=== PATIENT | male | born 1970 | race Caucasian/White ===

== ENCOUNTER 2020-10-10 09:58 | Outpatient (REF) | payer OTHER, SELFPAY ==
[2020-10-10 11:37] LABS: Hematocrit 44.4 % (42-52); Hemoglobin 15.6 g/dl (14.0-18.0); Mean Corpuscular HGB Conc 35.1 g/dl (31.0-36.0); Mean Corpuscular Hemoglobin 28.6 pg (27.0-33.0); Mean Corpuscular Volume 81.3 fL (80-98); Mean Platelet Volume 8.4 fL (9.4-12.4); Platelet Count 239 X10*3/uL (160-400); Red Blood Count 5.46 X10*6/uL (4.60-5.80); Red Cell Distribution Width 12.7 % (11.0-16.0); White Blood Count 6.9 X10*3/uL (4.8-10.8)
[2020-10-10 11:54] LABS: Alanine Aminotransferase 40 U/L (0-40); Albumin Level 4.3 g/dL (3.5-5.0); Alkaline Phosphatase 73 U/L (39-117); Anion Gap 12 (12-20); Aspartate Amino Transferase 22 U/L (5-37); Bilirubin Direct 0.2 mg/dL (0.0-0.5); Bilirubin Total 0.5 mg/dL (0.0-1.0); Blood Urea Nitrogen 13 mg/dL (9-16); Calcium 8.6 mg/dL (8.4-10.2); Carbon Dioxide 27 mmol/L (22-29); Chloride 102 mmol/L (96-108); Cholesterol 192 mg/dL; Estimated Glomerular Filt Rate > 60; Glucose Random 99 mg/dL (60-115); HDL Cholesterol 32 mg/dL; LDL Cholesterol Calculated 128 mg/dl; Potassium 4.1 mmol/l (3.3-5.1); Sodium 137 mmol/L (135-145); Total Protein 6.8 g/dL (6.5-8.0); Triglycerides 162 mg/dL
== END 2020-10-10 09:59 | disposition home or self-care (01) ==
LOC: HO.LAB 09:58
DX: E78.5 Hyperlipidemia, unspecified (principal); I10 Essential (primary) hypertension
CPT/HCPCS: 36415; 80053; 80061; 80076; 82248; 85027

== ENCOUNTER 2021-01-31 09:01 | Outpatient (REF) | payer OTHER, SELFPAY ==
[2021-01-31 09:20] LABS: MANUAL DIFF FLAG NO
[2021-01-31 09:24] LABS: Basophils Absolute Auto 0.2 X10*3/uL (0.0-0.2); Basophils Percent Auto 2.3 % (0-2); Eosinophils Absolute Auto 0.5 X10*3/uL (0.0-0.4); Eosinophils Percent Auto 6.5 % (0-4); Hematocrit 46.3 % (42-52); Hemoglobin 16.3 g/dl (14.0-18.0); Imm Gran Abs Auto 0.02 X10*3/uL (0.00-0.03); Imm Gran Pct Auto 0.2 % (0.0-0.4); Lymphocytes Absolute Auto 2.3 X10*3/uL (1.2-4.9); Lymphocytes Percent Auto 28.2 % (20-40); Mean Corpuscular HGB Conc 35.2 g/dl (31.0-36.0); Mean Corpuscular Hemoglobin 28.3 pg (27.0-33.0); Mean Corpuscular Volume 80.4 fL (80-98); Mean Platelet Volume 8.2 fL (9.4-12.4); Monocytes Absolute Auto 0.6 X10*3/uL (0.1-1.2); Monocytes Percent Auto 7.9 % (2-11); Neutrophils Absolute Auto 4.4 X10*3/uL (2.0-8.3); Neutrophils Percent Auto 54.9 % (45-73); Platelet Count 246 X10*3/uL (160-400); Red Blood Count 5.76 X10*6/uL (4.60-5.80); Red Cell Distribution Width 12.7 % (11.0-16.0); White Blood Count 8.1 X10*3/uL (4.8-10.8)
[2021-01-31 09:55] LABS: Alanine Aminotransferase 43 U/L (0-40); Albumin Level 4.3 g/dL (3.5-5.0); Alkaline Phosphatase 84 U/L (39-117); Anion Gap 12 (12-20); Aspartate Amino Transferase 23 U/L (5-37); Bilirubin Total 0.6 mg/dL (0.0-1.0); Blood Urea Nitrogen 11 mg/dL (9-16); Calcium 9.1 mg/dL (8.4-10.2); Carbon Dioxide 27 mmol/L (22-29); Chloride 104 mmol/L (96-108); Cholesterol 203 mg/dL; Estimated Glomerular Filt Rate > 60; Glucose Fasting 108 mg/dL (60-99); HDL Cholesterol 31 mg/dL; LDL Cholesterol Calculated 143 mg/dl; Potassium 4.3 mmol/L (3.3-5.1); Sodium 139 mmol/L (135-145); Triglycerides 149 mg/dL
== END 2021-01-31 09:02 | disposition home or self-care (01) ==
LOC: HO.LAB 09:01
PROVIDERS: PCP Internal Medicine; Visit Provider Internal Medicine
DX: Z00.00 Encounter for general adult medical examination without abnormal findings (principal); E11.9 Type 2 diabetes mellitus without complications
CPT/HCPCS: 36415; 80053; 80061; 85025

== ENCOUNTER 2023-03-01 10:35 | Outpatient (REF) | payer OTHER, SELFPAY ==
[2023-03-01 10:50] LABS: MANUAL DIFF FLAG NO
[2023-03-01 11:09] LABS: Basophils Absolute Auto 0.2 X10*3/uL (0.0-0.2); Basophils Percent Auto 2.4 % (0-2); Eosinophils Absolute Auto 0.5 X10*3/uL (0.0-0.4); Eosinophils Percent Auto 6.1 % (0-4); Hematocrit 45.4 % (42.0-52.0); Imm Gran Abs Auto 0.02 X10*3/uL (0.00-0.03); Imm Gran Pct Auto 0.3 % (0.0-0.4); Lymphocytes Absolute Auto 2.1 X10*3/uL (1.2-4.9); Lymphocytes Percent Auto 27.7 % (20-40); Mean Corpuscular HGB Conc 35.2 g/dl (31.0-36.0); Mean Corpuscular Hemoglobin 28.5 pg (27.0-33.0); Mean Corpuscular Volume 80.9 fL (80.0-98.0); Mean Platelet Volume 8.6 fL (9.4-12.4); Monocytes Absolute Auto 0.5 X10*3/uL (0.1-1.2); Monocytes Percent Auto 6.1 % (2-11); Neutrophils Absolute Auto 4.3 x10*3/uL (2.0-8.3); Neutrophils Percent Auto 57.4 % (45-73); Platelet Count 238 X10*3/uL (160-400); Red Blood Count 5.61 X10*6/uL (4.60-5.80); Red Cell Distribution Width 12.6 % (11.0-16.0); White Blood Count 7.5 X10*3/uL (4.8-10.8)
[2023-03-01 11:40] LABS: Alanine Aminotransferase 27 U/L (0-40); Albumin Level 4.2 g/dL (3.5-5.0); Alkaline Phosphatase 71 U/L (39-117); Anion Gap 15 (12-20); Aspartate Amino Transferase 18 U/L (5-37); Bilirubin Total 0.8 mg/dL (0.0-1.0); Blood Urea Nitrogen 12 mg/dL (9-16); Calcium 8.9 mg/dL (8.4-10.2); Carbon Dioxide 23 mmol/L (22-29); Chloride 105 mmol/L (96-108); Cholesterol 191 mg/dL; Estimated Glomerular Filt Rate > 60; Glucose Fasting 107 mg/dL (60-99); HDL Cholesterol 32 mg/dL; LDL Cholesterol Calculated 127 mg/dl; Sodium 139 mmol/L (135-145); Total Protein 6.7 g/dL (6.5-8.0); Triglycerides 162 mg/dL
[2023-03-01 11:49] LABS: HIV AB/AG Nonreactive (Nonreactive); HIV Num 1 0.07 S/CO (0.00-0.99); ~HepC Num1 0.15 S/CO (0.00-0.79); ~Hepatitis C Antibody Nonreactive (Nonreactive)
[2023-03-01 11:50] LABS: Syphilis Screen Nonreactive (Nonreactive)
[2023-03-01 11:57] LABS: Prostate Specific Antigen Scr 2.92 ng/mL (<0.05-4.0); Thyroid Stimulating Hormone 0.92 uIU/mL (0.32-4.0)
[2023-03-04 22:23] LABS: Herpes Simplex Type 1 IgG <0.90 index; Herpes Simplex Type 2 IgG <0.90 index
== END 2023-03-01 10:36 | disposition home or self-care (01) ==
LOC: HO.LAB 10:35
PROVIDERS: PCP Internal Medicine; Visit Provider Internal Medicine
DX: Z00.00 Encounter for general adult medical examination without abnormal findings (principal); E03.9 Hypothyroidism, unspecified; E78.5 Hyperlipidemia, unspecified; N28.9 Disorder of kidney and ureter, unspecified; D64.9 Anemia, unspecified; Z20.2 Contact with and (suspected) exposure to infections with a predominantly sexual mode of transmission; Z12.5 Encounter for screening for malignant neoplasm of prostate
CPT/HCPCS: 36415; 80053; 80061; 84153; 84443; 85025; 86695; 86696; 86780; 86803; 87389

== ENCOUNTER → 2023-04-12 14:21 | Outpatient (BNVA) | payer OTHER, SELFPAY | PROVIDERS: Visit Provider Nurse Practitioner Family ==

== ENCOUNTER 2024-06-12 08:17 | Outpatient (AMB) | payer OTHER, SELFPAY ==
--- NOTE | 2024-06-12 08:28 | A.OFFPC_ITS ---
Vital Signs 06/12/24 08:30 Height 5 ft 11 in Weight 207 lb 8 oz BMI 28.9 BP 120/70 Blood Pressure Location Lt brachial Position Sitting Pulse 101 H Pulse Source Pulse Oximeter Pulse Oximetry (%) 97 Oxygen Delivery Method Room Air Intake Visit Reasons: sleep disorder Intake Note: Patient is here to follow up on sleep disorder. Administration Clerk Required: No Hand I Blocker: Not Required per policy Accompanied by: Self / Same As Patient Allergies cephalexin [From KEFLEX] Allergy (Unknown, Verified 06/12/24 08:30) RASH clindamycin [CLINDAMYCIN] Allergy (Unknown, Verified 06/12/24 08:30) RASH levofloxacin [From LEVAQUIN] Allergy (Unknown, Verified 06/12/24 08:30) RASH clindamycin Allergy (Unknown, Uncoded 06/12/24 08:30) rash Medication List - Last Reconciled 06/15/24 by Noe Rodriguez MD albuterol sulfate 90 mcg/actuation (ProAir HFA) 1 puff inhalation QID PRN bupropion HCl SR 150 mg PO BID clonazepam 1 mg PO BID clotrimazole-betamethasone 1-0.05 % 1 appl topical BID 2 weeks diphenoxylate-atropine 2.5-0.025 mg (Lomotil) 1 tab PO QID PRN lisinopril 10 mg PO DAILY omeprazole 40 mg PO DAILY ropinirole 1 mg PO BEDTIME sulfamethoxazole-trimethoprim 800-160 mg (Bactrim DS) 1 tab PO BID Tobacco use date assessed: 06/12/24 Dental Screening Dental Screen Date: 06/12/24 Did you have a dental visit in the last 12 months?: Yes Did you have a dental problem in the last 6 months where you did not have access to dental care?: No Was dental information given to patient?: Patient has dentist HPI sleep disorder HPI Details has restless legs syndrome and rx is not helping [facility] Medical History History of bone cyst Hypertension Surgical History History of total replacement of left ankle History of hernia surgery Family History Mother Heart attack COPD (chronic obstructive pulmonary disease) Father Heart attack High blood pressure Social History Housing: House Alcohol intake: current Alcohol intake frequency: holidays/special occasions only Patient Tobacco Use Status: Never used Tobacco e-Cigarette/Vaping Use: Never Used Second Hand Smoke Exposure: No service: No Current occupational status: employed Cognitive needs: No Hearing needs: No Vision needs: No Questionnaire PHQ-9 Over the last 2 weeks, how often have you been bothered by any of the following problems? 1. Little interest or pleasure in doing things: not at all 2. Feeling down, depressed, or hopeless: not at all 3. Trouble falling or staying asleep, or sleeping too much: not at all 4. Feeling tired or having little energy: not at all 5. Poor appetite or overeating: not at all 6. Feeling bad about yourself - or that you are a failure or have let yourself or your family down: not at all 7. Trouble concentrating on things, such as reading the newspaper or watching television: not at all 8. Moving or speaking so slowly that other people could have noticed. Or the opposite - being so fidgety or restless that you have been moving around a lot more than usual: not at all 9. Thoughts that you would be better off or of hurting yourself in some way: not at all Total score: 0 Depression Screening Interpretation: Negative Depression Screening Done: Yes Source: Developed by Drs. Loyd Harper, Janice Lomeli, Twin Feldman and colleagues, with an educational jessica from [employer]. Thrive Questionnaire Date Thrive assessed: 06/12/24 I am a: Patient What is your living situation today?: I have a steady place to live Within the past 12 months, did the food you bought not last and you didn't have the money to get more?: Never true Within the past 12 months, did you worry whether your food would run out before you got money to buy more?: Never true Do you have trouble paying for medicines?: No Do you have trouble getting transportation to medical appointments?: No Do you have trouble paying your heating and electricity bill?: No Do you have trouble taking care of your child, family member or friend?: No Do you have trouble with day-to-day activities such as bathing, preparing meals, shopping, managing finances, etc.?: No Are you currently unemployed and looking for a job?: No Are you interested in more education?: No Currently or been in a relationship where the following occur: No concerns reported THRIVE Score: 0 AUDIT C Alcohol Use Questionnaire (AUDIT-C) 1. How often do you have a drink containing alcohol?: Monthly or less 2. How many drinks containing alcohol do you have on a typical day when you are drinking?: 1 or 2 Total Score: 1 RALPH-7 AMB Questionnaire RALPH-7 Date RALPH - 7 assessed: 06/12/24 Feeling nervous, anxious, or on edge: 0 = Not at all Not being able to stop or control worryin = Not at all Worrying too much about different things: 0 = Not at all Trouble relaxin = Not at all Being so restless that it is hard to sit still: 0 = Not at all Becoming easily annoyed or irritable: 0 = Not at all Feeling afraid as if something awful might happen: 0 = Not at all Total RALPH-7 score (0-4 normal; 5-9 mild; 10-14 moderate; 15-21 severe): 0 Source: Developed by Drs. Loyd Harper, Janice Lomeli, Twin Feldman and colleagues, with an educational jessica from [employer]. Review of Systems Const Denies chills, Denies headache(s) and Denies weight loss ENT Denies headache(s) Card Denies chest pain, Denies syncope, Denies irregular heart rhythm and Denies dyspnea Resp Denies chest congestion, Denies cough and Denies dyspnea GI Denies abdominal pain, Denies change in stool character, Denies nausea and Denies vomiting Musc Denies deformity and Denies joint swelling Neuro Denies syncope and Denies headache(s) Physical exam (Primary Care) Vital Signs: Last Vital Signs Pulse 101 H 06/12/24 08:30 BP 120/70 06/12/24 08:30 Pulse Ox 97 06/12/24 08:30 Oxygen Delivery Method Room Air 06/12/24 08:30 BMI result Body Mass Index 28.9 Tobacco/Smoking Status: Tobacco use Status Tobacco use date assessed 06/12/24 06/12/24 08:36 Patient Tobacco Use Status Never used Tobacco 06/12/24 08:36 e-Cigarette/Vaping Use Never Used 06/12/24 08:36 PHQ-9: PHQ-9 Score PHQ-9: Total score 0 06/12/24 08:36 Depression Screening Interpretation: Negative Thrive Assessment: Date of Thrive Assessment Date Thrive assessed 06/12/24 06/12/24 08:36 Currently or been in a relationship where the following occur: No concerns reported Const General: cooperative, comfortable, no acute distress and alert Neck Neck: Yes no lymphadenopathy Thyroid: Thyroid normal Resp Effort & Inspection: normal respiratory effort Auscultation: clear to auscultation bilaterally Percussion: percussion normal Cardio Jugular venous distension: no JVD Palpation: normal PMI Rate: regular rate Rhythm: regular rhythm Heart sounds: S1 normal heart sound present and S2 normal heart sound present GI Inspection: Yes normal to inspection Palpation (GI): No hepatosplenomegaly present Skin General skin exam: no rashes or lesions noted Extrem General: Yes no clubbing, cyanosis or edema Assessment and Plan Assessment & Plan (1) Restless legs syndrome: Code(s): G25.81 - Restless legs syndrome Plan: new rx sent Orders: Orders Lipid Panel 06/12/24 Z13.220 - Encounter for screening for lipoid disorders Thyroid Stimulating Hormone 06/12/24 Z13.29 - Encounter for screening for other suspected endocrine disorder Comprehensive [place]. Panel Fast 06/12/24 Z13.9 - Encounter for screening, unspecified Complete Blood Count Auto Diff 06/12/24 Z13.0 - Encounter for screening for diseases of the blood and blood-forming organs and certain disorders involving the immune mechanism Medications: New clotrimazole-betamethasone 1-0.05 % 1 appl topical BID 2 weeks 45 grams 0RF sulfamethoxazole-trimethoprim 800-160 mg (Bactrim DS) 1 tab PO BID 10 tabs 0RF cyclobenzaprine 5 mg PO BEDTIME PRN 30 tabs 3RF muscle spasm Coding Level of Care Code Est Pt Level 3 (23674) Diagnoses Restless legs syndrome G25.81
[2024-06-12 08:30] VITALS: BP 120/70; PULSE 101; O2SAT 97; BMI 28.9
== END 2024-06-12 09:47 | disposition home or self-care (01) ==
PROVIDERS: Visit Provider Internal Medicine
DX: G25.81 Restless legs syndrome (principal)
CPT/HCPCS: 99213

== ENCOUNTER 2024-06-12 08:58 | Outpatient (REF) | payer OTHER, SELFPAY ==
[2024-06-12 10:22] LABS: Basophils Absolute Auto 0.3 X10*3/uL (0.0-0.2); Basophils Percent Auto 3.6 % (0-2); Eosinophils Absolute Auto 0.5 X10*3/uL (0.0-0.4); Eosinophils Percent Auto 6.7 % (0-4); Hematocrit 45.1 % (42.0-52.0); Hemoglobin 15.8 g/dl (14.0-18.0); Imm Gran Abs Auto 0.02 X10*3/uL (0.00-0.03); Imm Gran Pct Auto 0.3 % (0.0-0.4); Lymphocytes Absolute Auto 1.8 X10*3/uL (1.2-4.9); Lymphocytes Percent Auto 24.7 % (20-40); MANUAL DIFF FLAG SCAN; Mean Corpuscular Hemoglobin 29.3 pg (27.0-33.0); Mean Corpuscular Volume 83.5 fL (80.0-98.0); Mean Platelet Volume 8.8 fL (9.4-12.4); Monocytes Absolute Auto 0.6 X10*3/uL (0.1-1.2); Monocytes Percent Auto 7.8 % (2-11); Neutrophils Absolute Auto 4.2 x10*3/uL (2.0-8.3); Neutrophils Percent Auto 56.9 % (45-73); Platelet Count 271 X10*3/uL (160-400); Red Cell Distribution Width 12.9 % (11.0-16.0); SCAN SMEAR FLAG 1; White Blood Count 7.4 X10*3/uL (4.8-10.8)
[2024-06-12 10:43] LABS: SLIDE REVIEW VERIFIED
[2024-06-12 13:23] LABS: Carbon Dioxide 26 mmol/L (22-29); Chloride 104 mmol/L (96-108); Potassium 4.1 mmol/L (3.3-5.1); Sodium 140 mmol/L (135-145)
[2024-06-12 13:24] LABS: Alanine Aminotransferase 20 U/L (0-40); Albumin Level 4.5 g/dL (3.5-5.0); Anion Gap 14 (12-20); Aspartate Amino Transferase 16 U/L (5-37); Bilirubin Total 0.4 mg/dL (0.0-1.0); Blood Urea Nitrogen 10 mg/dL (9-16); Calcium 9.4 mg/dL (8.4-10.2); Cholesterol 177 mg/dL (<200); Estimated Glomerular Filt Rate > 60; Glucose Fasting 93 mg/dL (60-99); HDL Cholesterol 36 mg/dL (>40); LDL Cholesterol Calculated 116 mg/dL (<100); Total Protein 7.5 g/dL (6.5-8.0); Triglycerides 127 mg/dL (<150)
[2024-06-12 13:25] LABS: Alkaline Phosphatase 81 U/L (39-117)
[2024-06-12 13:33] LABS: Thyroid Stimulating Hormone 1.85 uIU/mL (0.32-4.0)
== END 2024-06-12 08:59 | disposition home or self-care (01) ==
LOC: HO.LAB 08:58
PROVIDERS: PCP Internal Medicine; Visit Provider Internal Medicine
DX: Z13.29 Encounter for screening for other suspected endocrine disorder (principal); Z13.0 Encounter for screening for diseases of the blood and blood-forming organs and certain disorders involving the immune mechanism; Z13.220 Encounter for screening for lipoid disorders; Z13.9 Encounter for screening, unspecified
CPT/HCPCS: 36415; 80053; 80061; 84443; 85025

== ENCOUNTER 2024-06-17 10:44 | Outpatient (AMB) | payer OTHER, SELFPAY ==
--- NOTE | 2024-06-17 10:56 | A.OFFPC_ITS ---
Vital Signs 06/17/24 10:57 Height 5 ft 11 in Weight 209 lb BMI 29.1 BP 122/80 Blood Pressure Location Lt brachial Position Sitting Pulse 85 Pulse Source Pulse Oximeter Pulse Oximetry (%) 98 Oxygen Delivery Method Room Air Intake Visit Reasons: Alergic reaction Tire Mounter: Not Required per policy Accompanied by: Self / Same As Patient Allergies cephalexin [From KEFLEX] Allergy (Unknown, Verified 06/17/24 10:57) RASH clindamycin [CLINDAMYCIN] Allergy (Unknown, Verified 06/17/24 10:57) RASH levofloxacin [From LEVAQUIN] Allergy (Unknown, Verified 06/17/24 10:57) RASH clindamycin Allergy (Unknown, Uncoded 06/17/24 10:57) rash sulfa Adverse Reaction (Intermediate, Uncoded 06/17/24 11:07) Rash Medication List - Last Reconciled 06/17/24 by Noe Rodriguez MD albuterol sulfate 90 mcg/actuation (ProAir HFA) 1 puff inhalation QID PRN bupropion HCl SR 150 mg PO BID clonazepam 1 mg PO BID clotrimazole-betamethasone 1-0.05 % 1 appl topical BID 2 weeks cyclobenzaprine 5 mg PO BEDTIME PRN diphenoxylate-atropine 2.5-0.025 mg (Lomotil) 1 tab PO QID PRN lisinopril 10 mg PO DAILY omeprazole 40 mg PO DAILY ropinirole 1 mg PO BEDTIME Tobacco use date assessed: 06/12/24 Dental Screening Dental Screen Date: 06/12/24 HPI Alergic reaction HPI Details allergic to sulfonamides and has rash on legs PFSH Medical History History of bone cyst Hypertension Surgical History History of total replacement of left ankle History of hernia surgery Family History Mother Heart attack COPD (chronic obstructive pulmonary disease) Father Heart attack High blood pressure Social History Housing: House Alcohol intake: current Alcohol intake frequency: holidays/special occasions only Patient Tobacco Use Status: Never used Tobacco e-Cigarette/Vaping Use: Never Used Second Hand Smoke Exposure: No service: No Current occupational status: employed Cognitive needs: No Hearing needs: No Vision needs: No Questionnaire Thrive Questionnaire Date Thrive assessed: 06/12/24 RALPH-7 AMB Questionnaire RALPH-7 Date RALPH - 7 assessed: 06/12/24 Source: Developed by Drs. Loyd Harper, Janice Lomeli, Twin Feldman and colleagues, with an educational jessica from [employer]. Review of Systems Const Denies chills, Denies headache(s) and Denies weight loss ENT Denies headache(s) Card Denies chest pain, Denies syncope, Denies irregular heart rhythm and Denies dyspnea Resp Denies chest congestion, Denies cough and Denies dyspnea GI Denies abdominal pain, Denies change in stool character, Denies nausea and Denies vomiting Musc Denies deformity and Denies joint swelling Neuro Denies syncope and Denies headache(s) Physical exam (Primary Care) Vital Signs: Last Vital Signs Pulse 85 06/17/24 10:57 BP 122/80 06/17/24 10:57 Pulse Ox 98 06/17/24 10:57 Oxygen Delivery Method Room Air 06/17/24 10:57 BMI result Body Mass Index 29.1 Tobacco/Smoking Status: Tobacco use Status Tobacco use date assessed 06/12/24 06/17/24 10:57 Patient Tobacco Use Status Never used Tobacco 06/17/24 10:57 e-Cigarette/Vaping Use Never Used 06/17/24 10:57 Thrive Assessment: Date of Thrive Assessment Date Thrive assessed 06/12/24 06/17/24 10:57 Const General: cooperative, comfortable, no acute distress and alert Neck Neck: Yes no lymphadenopathy Thyroid: Thyroid normal Resp Effort & Inspection: normal respiratory effort Auscultation: clear to auscultation bilaterally Percussion: percussion normal Cardio Jugular venous distension: no JVD Palpation: normal PMI Rate: regular rate Rhythm: regular rhythm Heart sounds: S1 normal heart sound present and S2 normal heart sound present GI Inspection: Yes normal to inspection Palpation (GI): No hepatosplenomegaly present Skin Other: drug rash on legs Extrem General: Yes no clubbing, cyanosis or edema Assessment and Plan Assessment & Plan (1) Allergy to sulfonamides: Code(s): Z88.2 - Allergy status to sulfonamides Plan: rx sent Medications: New methylprednisolone (Medrol (Cristiano)) PO PER PKG DIR 21 ea 0RF Coding Level of Care Code Est Pt Level 3 (51882) Diagnoses Allergy to sulfonamides Z88.2
[2024-06-17 10:57] VITALS: BP 122/80; PULSE 85; O2SAT 98; BMI 29.1
== END 2024-06-17 11:10 | disposition home or self-care (01) ==
PROVIDERS: PCP Internal Medicine; Visit Provider Internal Medicine
DX: Z88.2 Allergy status to sulfonamides (principal)
CPT/HCPCS: 99213

== ENCOUNTER 2024-09-10 10:14 | Outpatient (AMB) | payer OTHER, SELFPAY ==
[2024-09-10 10:16] VITALS: BP 132/80; PULSE 96; O2SAT 94
--- NOTE | 2024-09-10 10:16 | MHC.PC.OV ---
Vital Signs 09/10/24 10:16 Height 5 ft 11 in Weight 215 lb BMI 30.0 BP 132/80 Blood Pressure Location Lt brachial Position Sitting Pulse 96 Pulse Source Pulse Oximeter Pulse Oximetry (%) 94 Oxygen Delivery Method Room Air Intake Visit Reasons: health concerns Insemination Worker Required: No Accompanied by: Self / Same As Patient Allergies cephalexin [From KEFLEX] Allergy (Unknown, Verified 09/10/24 10:17) RASH clindamycin [CLINDAMYCIN] Allergy (Unknown, Verified 09/10/24 10:17) RASH levofloxacin [From LEVAQUIN] Allergy (Unknown, Verified 09/10/24 10:17) RASH clindamycin Allergy (Unknown, Uncoded 09/10/24 10:17) rash sulfa Adverse Reaction (Intermediate, Uncoded 09/10/24 10:17) Rash Medication List - Last Reconciled 09/10/24 by Noe Rodriguez MD albuterol sulfate 90 mcg/actuation (ProAir HFA) 1 puff inhalation QID PRN bupropion HCl SR 150 mg PO BID clonazepam 1 mg PO BID cyclobenzaprine 5 mg PO BEDTIME PRN lisinopril 10 mg PO DAILY omeprazole 40 mg PO DAILY ropinirole 1 mg PO BEDTIME Tobacco use date assessed: 06/12/24 Dental Screening Dental Screen Date: 06/12/24 HPI health concerns HPI Details work stress; will need some time off and perhaps fmla; has psychology f/u [facility] Medical History History of bone cyst Hypertension Surgical History History of total replacement of left ankle History of hernia surgery Family History Mother Heart attack COPD (chronic obstructive pulmonary disease) Father Heart attack High blood pressure Social History Housing: House Alcohol intake: current Alcohol intake frequency: holidays/special occasions only Patient Tobacco Use Status: Never used Tobacco Tobacco use type: Cigarette e-Cigarette/Vaping Use: Never Used Second Hand Smoke Exposure: No service: No Current occupational status: employed Cognitive needs: No Hearing needs: No Vision needs: No Questionnaire PHQ-9 Over the last 2 weeks, how often have you been bothered by any of the following problems? 1. Little interest or pleasure in doing things: not at all 2. Feeling down, depressed, or hopeless: not at all 3. Trouble falling or staying asleep, or sleeping too much: not at all 4. Feeling tired or having little energy: not at all 5. Poor appetite or overeating: not at all 6. Feeling bad about yourself - or that you are a failure or have let yourself or your family down: not at all 7. Trouble concentrating on things, such as reading the newspaper or watching television: not at all 8. Moving or speaking so slowly that other people could have noticed. Or the opposite - being so fidgety or restless that you have been moving around a lot more than usual: not at all 9. Thoughts that you would be better off or of hurting yourself in some way: not at all Total score: 0 Depression Screening Interpretation: Negative Depression Screening Done: Yes Source: Developed by Drs. Loyd Harper, Janice Lomeli, Twin Feldman and colleagues, with an educational jessica from [employer]. Thrive Questionnaire Date Thrive assessed: 06/12/24 AUDIT C Alcohol Use Questionnaire (AUDIT-C) 1. How often do you have a drink containing alcohol?: Monthly or less 2. How many drinks containing alcohol do you have on a typical day when you are drinking?: 1 or 2 Total Score: 1 RALPH-7 AMB Questionnaire RALPH-7 Date RALPH - 7 assessed: 06/12/24 Source: Developed by Drs. Loyd Harper, Twin Melendez and colleagues, with an educational jessica from [employer]. Review of Systems Const Denies chills, Denies headache(s) and Denies weight loss ENT Denies headache(s) Card Denies chest pain, Denies syncope, Denies irregular heart rhythm and Denies dyspnea Resp Denies chest congestion, Denies cough and Denies dyspnea GI Denies abdominal pain, Denies change in stool character, Denies nausea and Denies vomiting Musc Denies deformity and Denies joint swelling Neuro Denies syncope and Denies headache(s) Physical exam (Primary Care) Vital Signs: Last Vital Signs Pulse 96 09/10/24 10:16 BP 132/80 09/10/24 10:16 Pulse Ox 94 09/10/24 10:16 Oxygen Delivery Method Room Air 09/10/24 10:16 BMI result Body Mass Index 30.0 Tobacco/Smoking Status: Tobacco use Status Tobacco use date assessed 06/12/24 09/10/24 10:22 Patient Tobacco Use Status Never used Tobacco 09/10/24 10:22 Tobacco use type Cigarette 09/10/24 10:22 e-Cigarette/Vaping Use Never Used 09/10/24 10:22 PHQ-9: PHQ-9 Score PHQ-9: Total score 0 09/10/24 10:22 Depression Screening Interpretation: Negative Thrive Assessment: Date of Thrive Assessment Date Thrive assessed 06/12/24 09/10/24 10:22 Const General: cooperative, comfortable, no acute distress and alert Neck Neck: Yes no lymphadenopathy Thyroid: Thyroid normal Resp Effort & Inspection: normal respiratory effort Auscultation: clear to auscultation bilaterally Percussion: percussion normal Cardio Jugular venous distension: no JVD Palpation: normal PMI Rate: regular rate Rhythm: regular rhythm Heart sounds: S1 normal heart sound present and S2 normal heart sound present GI Inspection: Yes normal to inspection Palpation (GI): No hepatosplenomegaly present Skin General skin exam: no rashes or lesions noted Extrem General: Yes no clubbing, cyanosis or edema Coding Level of Care Code Est Pt Level 3 (18081) Diagnoses Anxiety F41.9 Assessment & Plan Assessment & Plan (1) Anxiety: Code(s): F41.9 - Anxiety disorder, unspecified Category: Medical Plan: oow for a week
== END 2024-09-10 10:32 | disposition home or self-care (01) ==
PROVIDERS: PCP Internal Medicine; Visit Provider Internal Medicine
DX: F41.9 Anxiety disorder, unspecified (principal)

== ENCOUNTER → 2024-09-10 10:14 | Outpatient (BNVA) | payer OTHER, SELFPAY | PROVIDERS: PCP Internal Medicine; Visit Provider Internal Medicine ==

== ENCOUNTER 2024-09-16 10:06 | Outpatient (AMB) | payer OTHER, SELFPAY ==
--- NOTE | 2024-09-16 10:12 | A.OFFVIS_ITS ---
Vital Signs 09/16/24 10:16 Height 5 ft 11 in Weight 217 lb 6.012 oz BMI 30.3 BP 104/66 Blood Pressure Location Lt brachial Position Sitting Pulse 86 Pulse Source Pulse Oximeter Pulse Oximetry (%) 97 Oxygen Delivery Method Room Air Intake Visit Reasons: [place] [facility] Intake Note: Relevant Flags or Indicators ? Requires Clinical Product Manager? N. Pt previously seen by Jessi frazier for colo screening. Never had procedure. Tito presents in office today for a scheduled colo consult. CC; Since last visit; labs ordered ? done per pcp. Rx ordered ? no. Diagnostics/images ordered ? none. Relevant GI Sx as reported per pt? Reflux -- well controlled with their current medication. ? Dysphagia ? Fecal abnormalities o?? Diarrhea ? Bloating ? Abdominal distention ? Hx of any recent surgeries? None ? Pertinent FMHx? Mother - Chronic diarrhea, unspecified GI abnormalities. Maternal Grandmother - Heart disease. Allergies Sulfa (Sulfonamide Antibiotics) Allergy (Intermediate, Verified 09/16/24 10:24) Rash cephalexin [From KEFLEX] Allergy (Unknown, Verified 09/16/24 10:24) RASH clindamycin [CLINDAMYCIN] Allergy (Unknown, Verified 09/16/24 10:24) RASH levofloxacin [From LEVAQUIN] Allergy (Unknown, Verified 09/16/24 10:24) RASH HPI HPI [place]: Details: LAST VISIT: Screen for colon cancer Patient denies any cardiac or respiratory symptoms.? Long history loose stools when eating dairy. On omeprazole for acid reflux and states that he is doing well. Denies any issues with anesthesia in the past.? Patient was told that he stops breathing few times during anesthesia. Patient was told that by his as well.? No history infectious diseases in the past or present.? Not on any anticoagulation therapy.? No family or personal history of colon cancer or polyp s.? Patient denies melena, hematochezia, unintentional weight loss or ribbon like stools.? Discussed at length the pre-procedure,? prep, diet & medications as well as what to expect prior, during and after the procedure.?? Stressed the importance of good bowel prep. ?Recommended the use of Vaseline or Calmoseptine OTC & baby wipes with bowel movements to promote comfort.? ?Patient verbalizes understanding and agrees to plan of care.? He was given the opportunity to ask questions and all questions answered.? We will see him after the procedure.? TODAY'S VISIT Patient is here today for requested visit. Patient was unable to go for colonoscopy as he forgot after last appointment. Patient was visiting [place] over the summer and had viral illness with diarrhea lasting 3 days. Patient does have symptoms of occasional loose stools depending on what he eats. Patient reports that he is not able to tolerate dairy. He is aware that certain food will cause those symptoms. Patient denies melena, hematochezia, unintentional weight loss or ribbon like stools. Patient denies dyspepsia, dysphagia. This has any cardiac or respiratory symptoms. FORMERLY [facility], [facility]1983 Medical History Hypertension History of bone cyst Surgical History History of total replacement of left ankle History of hernia surgery Family History Mother Heart attack COPD (chronic obstructive pulmonary disease) Father Heart attack High blood pressure Social History Housing: House Alcohol intake: current Alcohol intake frequency: holidays/special occasions only Patient Tobacco Use Status: Never used Tobacco Tobacco use type: Cigarette e-Cigarette/Vaping Use: Never Used Second Hand Smoke Exposure: No service: No Current occupational status: employed Cognitive needs: No Hearing needs: No Vision needs: No Review of Systems Const Denies weight gain and Denies weight loss ENT Reports no additional complaints, Denies dysphagia and Denies odynophagia Card Reports no additional complaints Resp Reports no additional complaints GI Denies abdominal pain, Denies belching, Denies melena, Denies bloating, Denies change in bowel habits, Denies dysphagia, Denies excessive flatus, Denies dyspepsia, Denies heartburn, Denies diarrhea, Reports loose stools (occasional), Denies nausea, Denies odynophagia and Denies vomiting Reports no additional complaints Musc Reports no additional complaints Neuro Reports no additional complaints Psych Reports no additional complaints Endo Reports no additional complaints Physical Exam Vital Signs: BMI result Body Mass Index 30.3 Const General: healthy appearing and no acute distress Nutritional Appearance: obese Orientation/consciousness: patient oriented x3 Resp Effort & Inspection: normal respiratory effort, able to speak in complete sentences, no tracheal deviation and symmetric chest movement Auscultation: clear to auscultation bilaterally Cardio Rate: regular rate GI Inspection: Yes normal to inspection, No distended and Yes obesity Palpation (GI): Soft to palpation, not firm, nontender and No hepatosplenomegaly present Auscultation: normal bowel sounds General: Yes no CVA tenderness Back/Spine/Pelvis Back: no CVA tenderness Skin General skin exam: elasticity normal, turgor normal and dry skin Neuro General: patient oriented x3 Psych Appearance: grossly normal Mental Status: mental status grossly normal Assessment & Plan Assessment & Plan (1) Screen for colon cancer: Code(s): Z12.11 - Encounter for screening for malignant neoplasm of colon Plan Screen for colon cancer Patient denies any cardiac or respiratory symptoms.? Long history loose stools when eating dairy. On omeprazole for acid reflux and states that he is doing well. However does report on and off reflux if he forgets to take omeprazole. Will send him for upper endoscopy. Patient has been on omeprazole for many year s. Denies any issues with anesthesia in the past.? Patient was told that he stops breathing few times during anesthesia. Patient was told that by his as well.? No history infectious diseases in the past or present.? Not on any anticoagulation therapy.? No family or personal history of colon cancer or polyps.? Patient denies melena, hematochezia, unintentional weight loss or ribbon like stools.? Discussed at length the pre-procedure,? prep, diet & medications as well as what to expect prior, during and after the procedure.?? Stressed the importance of good bowel prep. ?Recommended the use of Vaseline or Calmoseptine OTC & baby wipes with bowel movements to promote comfort.? ?Patient verbalizes understanding and agrees to plan of care.? He was given the opportunity to ask questions and all questions answered.? We will see him after the procedure.? Medications: New bisacodyl (Dulcolax (bisacodyl)) take 4 tabs at noon the day before your colonoscopy 20 mg (4 x 5 mg) PO ONCE 1 day 4 tabs 0RF Z12.11 - Encounter for screening for malignant neoplasm of colon polyethylene glycol 3350 (Miralax) As directed by gastroenterology department at [facility] 238 grams PO ONCE 238 grams 0RF Z12.11 - Encounter for screening for malignant neoplasm of colon Coding Level of Care Code Est Pt Level 3 (75159) Diagnoses Screen for colon cancer Z12.11 Time Spent (min) 30 Comment 20 minutes spent with patient and additional 10 minutes spent reviewing his records
[2024-09-16 10:16] VITALS: BP 104/66; PULSE 86; O2SAT 97; BMI 30.3
== END 2024-09-16 11:07 | disposition home or self-care (01) ==
PROVIDERS: PCP Internal Medicine; Visit Provider Nurse Practitioner Family
DX: Z01.818 Encounter for other preprocedural examination (principal); Z12.11 Encounter for screening for malignant neoplasm of colon
CPT/HCPCS: 99212

== ENCOUNTER → 2024-09-16 10:06 | Outpatient (BNVA) | payer OTHER, SELFPAY | PROVIDERS: PCP Internal Medicine; Visit Provider Nurse Practitioner Family ==

== ENCOUNTER 2024-10-13 14:09 | Outpatient (REF) | payer OTHER, SELFPAY ==
--- NOTE | ~2024-10-13 | XR_ITS ---
EXAMINATION: XR CHEST CLINICAL INFORMATION: R07.9 - Chest pain, unspecified COMPARISON: 11/08/2017 TECHNIQUE: 2 views of the chest were obtained. FINDINGS: No significant abnormality is noted involving the heart, lungs, mediastinum, bony thorax or soft tissues. XR/XR chest 2V IMPRESSION: No acute disease Electronically signed by: Robert Douglass MD 10/13/2024 03:27 PM EST
== END 2024-10-13 14:10 | disposition home or self-care (01) ==
LOC: HO.XRAY 14:09
PROVIDERS: PCP Internal Medicine; Visit Provider Internal Medicine
DX: R07.9 Chest pain, unspecified (principal); J45.909 Unspecified asthma, uncomplicated
CPT/HCPCS: 71046; 96127

== ENCOUNTER 2024-10-13 14:09 | Outpatient (AMB) | payer OTHER, SELFPAY ==
[2024-10-13 14:10] VITALS: BP 130/78; PULSE 75; O2SAT 98
--- NOTE | 2024-10-13 14:10 | A.OFFPC_ITS ---
Vital Signs 10/13/24 14:10 Height 5 ft 11 in Weight 215 lb BMI 30.0 BP 130/78 Blood Pressure Location Lt brachial Position Sitting Pulse 75 Pulse Source Pulse Oximeter Pulse Oximetry (%) 98 Oxygen Delivery Method Room Air Intake Visit Reasons: Follow Up Allergies Sulfa (Sulfonamide Antibiotics) Allergy (Intermediate, Verified 10/13/24 14:11) Rash cephalexin [From KEFLEX] Allergy (Unknown, Verified 10/13/24 14:11) RASH clindamycin [CLINDAMYCIN] Allergy (Unknown, Verified 10/13/24 14:11) RASH levofloxacin [From LEVAQUIN] Allergy (Unknown, Verified 10/13/24 14:11) RASH Medication List - Last Reconciled 10/14/24 by Noe Rodriguez MD albuterol sulfate 90 mcg/actuation (ProAir HFA) 1 puff inhalation QID PRN bisacodyl (Dulcolax (bisacodyl)) 20 mg (4 x 5 mg) PO ONCE 1 day bupropion HCl SR 150 mg PO BID clonazepam 1 mg PO BID cyclobenzaprine 5 mg PO BEDTIME PRN lisinopril 10 mg PO DAILY magnesium oxide 500 mg PO DAILY omeprazole 40 mg PO DAILY polyethylene glycol 3350 (Miralax) 238 grams PO ONCE ropinirole 1 mg PO BEDTIME Tobacco use date assessed: 06/12/24 Dental Screening Dental Screen Date: 06/12/24 HPI Follow Up HPI Details asthma; stable on rx PFSH Medical History Hypertension History of bone cyst Surgical History History of total replacement of left ankle History of hernia surgery Family History Mother Heart attack COPD (chronic obstructive pulmonary disease) Father Heart attack High blood pressure Social History Housing: House Alcohol intake: current Alcohol intake frequency: holidays/special occasions only Patient Tobacco Use Status: Never used Tobacco Tobacco use type: Cigarette e-Cigarette/Vaping Use: Never Used Second Hand Smoke Exposure: No service: No Current occupational status: employed Cognitive needs: No Hearing needs: No Vision needs: No Questionnaire PHQ-9 Over the last 2 weeks, how often have you been bothered by any of the following problems? 1. Little interest or pleasure in doing things: not at all 2. Feeling down, depressed, or hopeless: not at all 3. Trouble falling or staying asleep, or sleeping too much: not at all 4. Feeling tired or having little energy: not at all 5. Poor appetite or overeating: not at all 6. Feeling bad about yourself - or that you are a failure or have let yourself or your family down: not at all 7. Trouble concentrating on things, such as reading the newspaper or watching television: not at all 8. Moving or speaking so slowly that other people could have noticed. Or the opposite - being so fidgety or restless that you have been moving around a lot more than usual: not at all 9. Thoughts that you would be better off or of hurting yourself in some way: not at all Total score: 0 Depression Screening Interpretation: Negative Depression Screening Done: Yes Source: Developed by Drs. Loyd Harper, Janice Lomeli, Twin Feldman and colleagues, with an educational jessica from [employer]. Thrive Questionnaire Date Thrive assessed: 06/12/24 AUDIT C Alcohol Use Questionnaire (AUDIT-C) 1. How often do you have a drink containing alcohol?: Monthly or less 2. How many drinks containing alcohol do you have on a typical day when you are drinking?: 1 or 2 Total Score: 1 RALPH-7 AMB Questionnaire RALPH-7 Date RALPH - 7 assessed: 06/12/24 Source: Developed by Drs. Loyd Harper, Twin Melendez and colleagues, with an educational jessica from [employer]. Review of Systems Const Denies chills, Denies headache(s) and Denies weight loss ENT Denies headache(s) Card Denies chest pain, Denies syncope, Denies irregular heart rhythm and Denies dyspnea Resp Denies chest congestion, Denies cough and Denies dyspnea GI Denies abdominal pain, Denies change in stool character, Denies nausea and Denies vomiting Musc Denies deformity and Denies joint swelling Neuro Denies syncope and Denies headache(s) Physical exam (Primary Care) Vital Signs: Last Vital Signs Pulse 75 10/13/24 14:10 BP 130/78 10/13/24 14:10 Pulse Ox 98 10/13/24 14:10 Oxygen Delivery Method Room Air 10/13/24 14:10 BMI result Body Mass Index 30.0 Tobacco/Smoking Status: Tobacco use Status Tobacco use date assessed 06/12/24 10/13/24 14:14 Patient Tobacco Use Status Never used Tobacco 10/13/24 14:14 Tobacco use type Cigarette 10/13/24 14:14 e-Cigarette/Vaping Use Never Used 10/13/24 14:14 PHQ-9: PHQ-9 Score PHQ-9: Total score 0 10/13/24 14:14 Depression Screening Interpretation: Negative Thrive Assessment: Date of Thrive Assessment Date Thrive assessed 06/12/24 10/13/24 14:14 Const General: cooperative, comfortable, no acute distress and alert Neck Neck: Yes no lymphadenopathy Thyroid: Thyroid normal Resp Effort & Inspection: normal respiratory effort Auscultation: clear to auscultation bilaterally Percussion: percussion normal Cardio Jugular venous distension: no JVD Palpation: normal PMI Rate: regular rate Rhythm: regular rhythm Heart sounds: S1 normal heart sound present and S2 normal heart sound present GI Inspection: Yes normal to inspection Palpation (GI): No hepatosplenomegaly present Skin General skin exam: no rashes or lesions noted Extrem General: Yes no clubbing, cyanosis or edema Coding Level of Care Code Est Pt Level 3 (91449) Diagnoses Asthma J45.909 Assessment & Plan Assessment & Plan (1) Asthma: Code(s): J45.909 - Unspecified asthma, uncomplicated Category: Medical Plan: stable; same rx Orders: Orders XR chest 2V 10/13/24 R07.9 - Chest pain, unspecified
== END 2024-10-13 14:25 | disposition home or self-care (01) ==
PROVIDERS: PCP Internal Medicine; Visit Provider Internal Medicine
DX: J45.909 Unspecified asthma, uncomplicated (principal)

== ENCOUNTER 2024-11-27 08:39 | Outpatient (AMB) | payer OTHER, SELFPAY ==
--- NOTE | 2024-11-27 08:43 | MHC.PC.OV ---
Vital Signs 11/27/24 08:44 Height 5 ft 11 in Weight 220 lb 2 oz BMI 30.7 BP 102/70 Blood Pressure Location Lt brachial Position Sitting Pulse 85 Pulse Source Pulse Oximeter Pulse Oximetry (%) 98 Oxygen Delivery Method Room Air Intake Visit Reasons: 6mth f/u Intake Note: Patient is here to follow up on HTN, Asthma and xray results. Pt decline flu shot today. 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 Accompanied by: Self / Same As Patient Allergies Sulfa (Sulfonamide Antibiotics) Allergy (Intermediate, Verified 11/27/24 08:44) Rash cephalexin [From KEFLEX] Allergy (Unknown, Verified 11/27/24 08:44) RASH clindamycin [CLINDAMYCIN] Allergy (Unknown, Verified 11/27/24 08:44) RASH levofloxacin [From LEVAQUIN] Allergy (Unknown, Verified 11/27/24 08:44) RASH Medication List - Last Reconciled 11/27/24 by Noe Rodriguez MD albuterol sulfate 90 mcg/actuation (ProAir HFA) 1 puff inhalation QID PRN bisacodyl (Dulcolax (bisacodyl)) 20 mg (4 x 5 mg) PO ONCE 1 day bupropion HCl SR 150 mg PO BID clonazepam 1 mg PO BID cyclobenzaprine 5 mg PO BEDTIME PRN lisinopril 10 mg PO DAILY magnesium oxide 500 mg PO DAILY omeprazole 40 mg PO DAILY polyethylene glycol 3350 (Miralax) 238 grams PO ONCE ropinirole 1 mg PO BEDTIME Tobacco use date assessed: 11/27/24 Dental Screening Dental Screen Date: 11/27/24 Did you have a dental visit in the last 12 months?: Yes Did you have a dental problem in the last 6 months where you did not have access to dental care?: No Was dental information given to patient?: Patient has dentist HPI 6mth f/u HPI Details HTN on Rx; doing well; compliant [facility] Medical History Hypertension History of bone cyst Surgical History History of total replacement of left ankle History of hernia surgery Family History Mother Heart attack COPD (chronic obstructive pulmonary disease) Father Heart attack High blood pressure Social History Housing: House Alcohol intake: current Alcohol intake frequency: holidays/special occasions only Patient Tobacco Use Status: Never used Tobacco Tobacco use type: Cigarette e-Cigarette/Vaping Use: Never Used Second Hand Smoke Exposure: No service: No Current occupational status: employed Cognitive needs: No Hearing needs: No Vision needs: No Questionnaire PHQ-9 Over the last 2 weeks, how often have you been bothered by any of the following problems? 1. Little interest or pleasure in doing things: not at all 2. Feeling down, depressed, or hopeless: several days (on medication) 3. Trouble falling or staying asleep, or sleeping too much: not at all 4. Feeling tired or having little energy: not at all 5. Poor appetite or overeating: not at all 6. Feeling bad about yourself - or that you are a failure or have let yourself or your family down: not at all 7. Trouble concentrating on things, such as reading the newspaper or watching television: not at all 8. Moving or speaking so slowly that other people could have noticed. Or the opposite - being so fidgety or restless that you have been moving around a lot more than usual: not at all 9. Thoughts that you would be better off or of hurting yourself in some way: not at all Total score: 1 Depression Screening Interpretation: Negative Depression Screening Done: Yes Source: Developed by Drs. Loyd Harper, Janice Lomeli, Twin Feldman and colleagues, with an educational jessica from [employer]. Thrive Questionnaire Date Thrive assessed: 11/27/24 I am a: Patient What is your living situation today?: I have a steady place to live Within the past 12 months, did the food you bought not last and you didn't have the money to get more?: Never true Within the past 12 months, did you worry whether your food would run out before you got money to buy more?: Never true Do you have trouble paying for medicines?: No Do you have trouble getting transportation to medical appointments?: No Do you have trouble paying your heating and electricity bill?: No Do you have trouble taking care of your child, family member or friend?: No Do you have trouble with day-to-day activities such as bathing, preparing meals, shopping, managing finances, etc.?: No Are you currently unemployed and looking for a job?: No Are you interested in more education?: No Currently or been in a relationship where the following occur: No concerns reported THRIVE Score: 0 AUDIT C Alcohol Use Questionnaire (AUDIT-C) 1. How often do you have a drink containing alcohol?: Never 2. How many drinks containing alcohol do you have on a typical day when you are drinking?: 1 or 2 3. How often do you have six or more drinks on one occasion?: Never Total Score: 0 RALPH-7 AMB Questionnaire RALPH-7 Date RALPH - 7 assessed: 11/27/24 Feeling nervous, anxious, or on edge: 1 = Several days (on medication) Not being able to stop or control worryin = Not at all Worrying too much about different things: 0 = Not at all Trouble relaxin = Not at all Being so restless that it is hard to sit still: 0 = Not at all Becoming easily annoyed or irritable: 0 = Not at all Feeling afraid as if something awful might happen: 0 = Not at all Total RALPH-7 score (0-4 normal; 5-9 mild; 10-14 moderate; 15-21 severe): 1 Source: Developed by Drs. Loyd Harper, Janice Loemli, Twin Feldman and colleagues, with an educational jessica from [employer]. Review of Systems Const Denies chills, Denies headache(s) and Denies weight loss ENT Denies headache(s) Card Denies chest pain, Denies syncope, Denies irregular heart rhythm and Denies dyspnea Resp Denies chest congestion, Denies cough and Denies dyspnea GI Denies abdominal pain, Denies change in stool character, Denies nausea and Denies vomiting Musc Denies deformity and Denies joint swelling Neuro Denies syncope and Denies headache(s) Physical exam (Primary Care) Vital Signs: Last Vital Signs Pulse 85 11/27/24 08:44 BP 102/70 11/27/24 08:44 Pulse Ox 98 11/27/24 08:44 Oxygen Delivery Method Room Air 11/27/24 08:44 BMI result Body Mass Index 30.7 Tobacco/Smoking Status: Tobacco use Status Tobacco use date assessed 11/27/24 11/27/24 08:47 Patient Tobacco Use Status Never used Tobacco 11/27/24 08:47 Tobacco use type Cigarette 11/27/24 08:47 e-Cigarette/Vaping Use Never Used 11/27/24 08:47 PHQ-9: PHQ-9 Score PHQ-9: Total score 1 11/27/24 08:50 Depression Screening Interpretation: Negative Thrive Assessment: Date of Thrive Assessment Date Thrive assessed 11/27/24 11/27/24 08:47 Currently or been in a relationship where the following occur: No concerns reported Const General: cooperative, comfortable, no acute distress and alert Neck Neck: Yes no lymphadenopathy Thyroid: Thyroid normal Resp Effort & Inspection: normal respiratory effort Auscultation: clear to auscultation bilaterally Percussion: percussion normal Cardio Jugular venous distension: no JVD Palpation: normal PMI Rate: regular rate Rhythm: regular rhythm Heart sounds: S1 normal heart sound present and S2 normal heart sound present GI Inspection: Yes normal to inspection Palpation (GI): No hepatosplenomegaly present Skin General skin exam: no rashes or lesions noted Extrem General: Yes no clubbing, cyanosis or edema Coding Level of Care Code Est Pt Level 3 (42628) Diagnoses Hypertension I10 Assessment & Plan Assessment & Plan (1) Hypertension: Code(s): I10 - Essential (primary) hypertension Category: Medical Plan: stable; same rx Medications: Refilled clonazepam 1 mg PO BID 60 tabs 5RF
[2024-11-27 08:44] VITALS: BP 102/70; PULSE 85; O2SAT 98; BMI 30.7
--- OUTSIDE RECORDS SUMMARY | 2024-11-27 08:51 | XMS_ITS | Data Portability ---
Author Organization [facility], [address] Address [address] [place] [address] Assessment No assessment recorded. Plan of Treatment Reminders Order Date Submit Date Provider Last Modified By Organization Details Last Modified Time Details Appointments None recorded. Lab rapid strep group A, throat 2021 [email or web address] 5 [address] [address] [place], [address], 12:36:53 rapid SARS CoV 2 Ag, QL IA, respiratory specimen 2021 [email or web address] 5 [address] [address] [place], [address], 12:36:54 rapid flu (A+B) 2021 [email or web address] 5 [address] [address] [place], [address], 12:36:54 Referral None recorded. Procedures None recorded. Surgeries None recorded. Imaging None recorded. Medication Orders doxycycline hyclate 100 mg capsule 2021 [id number], [address] [facility] [place], [address], 12:36:56 Patient TargetsNo targets recorded. Patient Instructions Encounter Date Encounter Id Patient Instructions Last Modified By Organization Details Last Modified Time 11/06/2022 [id number] viral infections : care instructions [email or web address] Not available 11/06/2022 12:36:53 diarrhea: care instructions [email or web address] Not available 11/06/2022 12:39:04 sore throat: car e instructions [email or web address] Not available 11/06/2022 12:36:53 Acute Sinusitis: Care Instructions Not available 11/06/2022 12:36:54 Take the antibiotic [...] primary care doctor as soon as possible. Not available 11/06/2022 12:39:03 Reason for Referral None Reported. Results Created Date Observation Date Name Description Value Unit Range Abnormal Flag Note LastModifiedBy Organization Detail LastModifiedTime 11/06/2011/06/2022 rapid flu (A+B) Unknown Analyte Normal = Negati ve Not Available [address] [place], [address], 11/06/2022 12:06:12 11/06/2011/06/2022 rapid flu (A+B) Unknown Analyte negati ve Not Available [address] [place], [address], 11/06/2022 12:06:12 11/06/2011/06/2022 rapid flu (A+B) Unknown Analyte Normal = Negati ve Not Available [address] [place], [address], 11/06/2022 12:06:12 11/06/2011/06/2022 rapid flu (A+B) Unknown Analyte negati ve Not Available [address] [place], [address], 11/06/2022 12:06:12 11/06/20 11/06/2022 rapid SARS CoV 2 Ag, QL IA, respi rator y speci men Unknown Analyte Normal =Negat robson Not Available [address] [place], [address], 11/06/2022 12:05:24 11/06/20 22 11/06/2022 rapid SARS CoV 2 Ag, QL IA, respi rator y speci men Unknown Analyte negati ve Not Available [address] [place], [address], 11/06/2022 12:05:24 11/06/20 22 11/06/2022 rapid strep group A, throa t Unknown Analyte Normal = Negati ve Not Available [address] [place], [address], 11/06/2022 12:00:22 11/06/20 22 11/06/2022 rapid strep group A, throa t Unknown Analyte negati ve Not Available [address] [place], [address], 11/06/2022 12:00:22 Result Notes None recorded. Problems Name Problem SNOMED Code Status Onset Date Resolution Date Notes Provider Name and Address Organization Details Recorded Time Hyperlipidemia 25588608 Active 2021 VIKI FAIRBANKS null, [place] - [facility] 12:03:50 Anxiety 57091740 Active 2021 VIKI FAIRBANKS null, [place] - [facility] 12:03:58 Gastroesophage al reflux disease 619319577 Active 2021 VIKI FAIRBANKS null, [place] - [facility] 12:04:07 Problem Notes None recorded. Medical Equipment None Reported. Allergies Allergen ID Allergen Name Allergen Category Reaction Reaction Severity Criticality Documentation Date Start Date Code Code System Note Provider Name and Address Organization Details Recorded Time 69113 Substance with sulfonami de structure and antibacte rial mechanism of action (substanc e) medicatio n Not available Not available Not available 11/06/2022 59311 8003 SNOMED VIKI palacios [place] - [facility] 12:02:00 Medications Name Sig Start Date [...] Last Updated DateTime 180.34 cm 29.3 kg/m2 71866.4 g 99 % 99 % 89 /min [...] history recorded. Immunizations Vaccine Type Date Status Note Provider Nam e and Address Organization Details Recorded Time COVID-19, [...] Diagnosis/Indication Diagnosis SNOMED-CT Code Diagnosis ICD10 Code [id number] [address] [facility], [place] [address] 01/27/2020 11:28:54 01/27/2020 12:31:58 [id number] [address] [facility], [place] [address] 01/26/2020 08:02:40 01/26/2020 08:34:40 [id number] [address] [facility], [place] [address] 06/22/2020 17:00:03 06/22/2020 18:08:57 [id number] [address] [facility], [place] [address] 06/24/2020 08:46:13 06/24/2020 09:53:35 [id number] [address] [facility], [place] [address] 07/09/2022 11:17:23 07/09/2022 13:13:41 [id number] Ebon[place] Yeh [place] [address] [facility], [place] [address] 11/06/2022 10:20:11 11/06/2022 13:27:19 Acute sinusitis 12148925 J01.90 Viral syndrome 209835736 B34.9 Health Concerns Section Related Observation LastModified by Organization Ngozi clements LastModified Time None Recorded Concern Status LastModified by Organization Details LastModified Time None Recorded Advance Directives Directive None Recorded Payers Encounter Date Sequence Insurance Name Policy Number Policy Son Covered Member ID Son Member ID Guarantor Name 01/27/2020 1 [facility] [employer] (POS) [id number] Tito Dafonseca [id number] Tito Dafonseca 06/22/2020 1 [facility] [employer] (POS) [id number] Tito Dafonseca [id number] Tito Dafonseca 06/24/2020 1 [facility] [employer] (POS) [id number] Tito Dafonseca [id number] Tito Dafonseca 07/09/2022 1 [facility] [employer] (POS) [id number] Tito Dafonseca [id number] Tito Dafonseca 11/06/2022 1 [facility] [employer] (POS) [id number] Tito Dafonseca [id number] Tito Dafonseca Notes Date Note Type Note [...] covid and flu. Eboni Yeh MD [address] [facility] [place], [address], [place] - [facility] 11/06/2022 12:52:16
== END 2024-11-27 08:58 | disposition home or self-care (01) ==
PROVIDERS: PCP Internal Medicine; Visit Provider Internal Medicine
DX: I10 Essential (primary) hypertension (principal)

== ENCOUNTER 2024-12-29 08:03 | Day surgery (SDC) | payer OTHER, SELFPAY ==
--- OUTSIDE RECORDS SUMMARY | 2024-11-03 23:28 | XMS_ITS | Data Portability ---
Author Organization [facility], [address] Address [address] [place] [address] Assessment No assessment recorded. Plan of Treatment Reminders Order Date Submit Date Provider Last Modified By Organization Details Last Modified Time Details Appointments None recorded. Lab rapid strep group A, throat 2021 [email or web address] 5 [address] [address], [address] [place], [address], 12:36:53 rapid SARS CoV 2 Ag, QL IA, respiratory specimen 2021 [email or web address] 5 [address] [address], [address] [place], [address], 12:36:54 rapid flu (A+B) 2021 [email or web address] 5 [address] [address], [address] [place], [address], 12:36:54 Referral None recorded. Procedures None recorded. Surgeries None recorded. Imaging None recorded. Medication Orders doxycycline hyclate [address] [facility][id number], [address] [facility] [place], [address], 12:36:56 Patient TargetsNo targets recorded. Patient Instructions Encounter Date Encounter Id Patient Instructions Last Modified By Organization Details Last Modified Time 11/06/2022 [id number] viral infections : care instructions [email or web address] Not available 11/06/2022 12:36:53 diarrhea: care instructions [email or web address] Not available 11/06/2022 12:39:04 sore throat: car e instructions [email or web address] Not available 11/06/2022 12:36:53 Acute Sinusitis: Care Instructions [email or web address] Not available 11/06/2022 12:36:54 Take the antibiotic as prescribed. Take an over the counter probiotic daily while taking the antibiotic. Rest. Drink plenty of fluids. Over the counter mucinex may be taken for congestion per package instructions. See printed instructions and work note. If your symptoms worsen you will need to go to the Emergency Department for further evaluation. Follow-up with your primary care doctor as soon as possible. [email or web address] Not available 11/06/2022 12:39:03 Reason for Referral None Reported. Results Created Date Observation Date Name Description Value Unit Range Abnormal Flag Note LastModifiedBy Organization Detail LastModifiedTime 11/06/2011/06/2022 rapid flu (A+B) Unknown Analyte Normal = Negati ve Not Available [address] [place], [address], 11/06/2022 12:06:12 11/06/2011/06/2022 rapid flu (A+B) Unknown Analyte negati ve Not Available [address] [place], [address], 11/06/2022 12:06:12 11/06/2011/06/2022 rapid flu (A+B) Unknown Analyte Normal = Negati ve Not Available [address] [place], [address], 11/06/2022 12:06:12 11/06/2011/06/2022 rapid flu (A+B) Unknown Analyte negati ve Not Available [address] [place], [address], 11/06/2022 12:06:12 11/06/20 11/06/2022 rapid SARS CoV 2 Ag, QL IA, respi rator y speci men Unknown Analyte Normal =Negat robson Not Available [address] [place], [address], 11/06/2022 12:05:24 11/06/20 22 11/06/2022 rapid SARS CoV 2 Ag, QL IA, respi rator y speci men Unknown Analyte negati ve Not Available [address] [place], [address], 11/06/2022 12:05:24 11/06/20 22 11/06/2022 rapid strep group A, throa t Unknown Analyte Normal = Negati ve Not Available [address] [place], [address], 11/06/2022 12:00:22 11/06/20 22 11/06/2022 rapid strep group A, throa t Unknown Analyte negati ve Not Available [address] [place], [address], 11/06/2022 12:00:22 Result Notes None recorded. Problems Name Problem SNOMED Code Status Onset Date Resolution Date Notes Provider Name and Address Organization Details Recorded Time Hyperlipidemia 57379016 Active 2021 VIKI FAIRBANKS null, [place] - [facility] 2 12:03:50 Anxiety 91792129 Active 2021 VIKI FAIRBANKS null, [place] - [facility] 12:03:58 Gastroesophage al reflux disease 850188586 Active 2021 VIKI FAIRBANKS null, [place] - [facility] 12:04:07 Problem Notes None recorded. Medical Equipment None Reported. Allergies Allergen ID Allergen Name Allergen Category Reaction Reaction Severity Criticality Documentation Date Start Date Code Code System Note Provider Name and Address Organization Details Recorded Time 75636 Substance with sulfonami de structure and antibacte rial mechanism of action (substanc e) medicatio n Not available Not available Not available 11/06/2022 46198 8003 SNOMED VIKI palacios [place] - [facility] 12:02:00 Medications Name Sig Start Date Stop Date Status Note LastModified by Organization Details LastModified Time doxycycline hyclate 100 mg capsule Take 1 capsule twice a day by oral route for 10 days. 022 active Not Available Not Available Not Avai lable Lipitor active Not Available Not Avail able Not Available omeprazole active Not Available Not Av ailable Not Available clonazepam active Not Available Not Av ailable Not Available bupropion HBr active Not Available Not Available Not Available Vitals Date Recorded Body height Body mass index (BMI) Body weight Oxygen saturation Oxygen saturation in Arterial blood by Pulse oximetry Heart rate Respiratory rate Body temperature Systolic blood pressure Diastolic blood pressure Provider Name and Address Organization Details Last Updated DateTime 180.34 cm 29.3 kg/m2 54494.4 g 99 % 99 % 89 /min 18 /min 98.4 [degF] 126 mm[Hg] 81 mm[Hg] VIKI FAIRBANKS [place] - [facility] 2 12:01:15 Social History Question Answer Notes LastModified by Organizat ion Details LastModified Time Tobacco Smoking Status Never Smoker VIKI palacios [place] - [facility] 11/06/2022 12:04:36 What Is Your Level Of Alcohol Consumption? None Information not available 11/06/2022 Do You Use Any Illicit Or Recreational Drugs? No Information not available 11/06/2022 Have You Recently Traveled Abroad? No Information not available 11/06/2022 Sex: Unknown Functional Status None recorded. Mental Status None recorded. Family History Relationship Description Onset Age of this Age Resolved Age Notes LastModified by Organization Details LastModified Time Father No current problems or disability Not available 11/06 12:04:11 Mother No current problems or disability Not available 11/06 12:04:11 Medical History No medical history recorded. Immunizations Vaccine Type Date Status Provider Name and Address Organization Details Recorded Time COVID-19, mRNA, LNP-S, PF, 30 mcg/0.3 mL dose 02/09/2021 completed VIKI FAIRBANKS null, [place] - [facility] 11/06/2022 12:01:44 Influenza, split virus, quadrivalent, PF 08/28/2020 completed VIKI FAIRBANKS null, [place] - [facility] 11/06/2022 12:01:44 COVID-19, mRNA, LNP-S, PF, 30 mcg/0.3 mL dose 03/02/2021 completed VIKI FAIRBANKS null, [place] - [facility] 11/06/2022 12:01:44 Past Encounters Encounter ID Performer Location Encounter Start Date Encounter Closed Date Diagnosis/Indication Diagnosis SNOMED-CT Code Diagnosis ICD10 Code [id number] [address] [facility] [address], [place] [address] 01/27/2020 11:28:54 01/27/2020 12:31:58 [id number] [address] [facility], [place] [address] 01/26/2020 08:02:40 01/26/2020 08:34:40 [id number] [address] [facility], [place] [address] 06/22/2020 17:00:03 06/22/2020 18:08:57 [id number] [address] [facility], [place] [address] 06/24/2020 08:46:13 06/24/2020 09:53:35 [id number] [address] [facility], [place] [address] 07/09/2022 11:17:23 07/09/2022 13:13:41 [id number] [place] Y[place] [address] [facility], [place] [address] 11/06/2022 10:20:11 11/06/2022 13:27:19 Acute sinusitis 39257364 J01.90 Viral syndrome 017801748 B34.9 Health Concerns Section Related Observation LastModified by Organization Ngozi clements LastModified Time None Recorded Concern Status LastModified by Organization Details LastModified Time None Recorded Advance Directives Directive None Recorded Payers Encounter Date Sequence Insurance Name Policy Number Policy Son Covered Member ID Son Member ID Guarantor Name 01/27/2020 1 [employer] [facility] [facility] HE[employer] (POS) [id number] Tito Mahmoodonseca [id number] Tito Dafonseca 06/22/2020 1 [employer] [facility] [facility] [employer] HEALTH PL[employer] (POS) [id number] Tito Dafonseca [id number] Tito Dafonseca 06/24/2020 1 [employer] [facility] [facility] [employer] HE[employer] (POS) [id number] Tito Dafonseca [id number] Tito Dafonseca 07/09/2022 1 [employer] HE[employer] (POS) [id number] Tito Dafonseca [id number] Tito Dafonseca 11/06/2022 1 [facility] PLAN (POS) [id number] Tito Dafonseca [id number] Tito Dafonseca Notes Date Note Type Note Provider Name and Address Organization Details Recorded Time 2 text/html CoughReported bypatient.source of patient informationInformation obtained from patient; Patient arrived at Urgent Care ambulatory Quality:productive cough Severity:moderate Duration:constant; 7 days Timing:gradual Context:family members ill with similar symptoms Associated Symptoms:no chest pain; no edema; no wheezing;fever;chills;nause a;vomiting;post nasal dripNotes:52 year old male presenting for evaluation of an illness that began about one week ago. He reports fever, chills, body aches, nasal congestion, post nasal drip, bilateral frontal and maxillary sinus pain and pressure, sore throat, productive cough, sporadic nausea, vomiting and diarrhea. No rash or stiff neck. He has fatigue. No chest pain. No abdominal pain, eye symptoms or ear pain. He has a frontal headache. A family member has had similar symptoms and tested negative for covid and flu. Eboni Yeh MD [address] [facility] [place], [address], [place] - [facility] 11/06/2022 12:52:16
[2024-12-25 15:01] VITALS: BMI 30.7
--- NOTE | 2024-12-28 13:33 | HO.ANESPROP2 ---
Documented by User: Thea Michaud NP 12/28/24 13:34 HPI - Anesthesia Eval Consult details Narrative: 54yo M for Upper Endoscopy and Colonoscopy [facility] Active Problems Active Problems: All Active Problems Anxiety (Acute) Allergy to sulfonamides (Acute) Restless legs syndrome (Acute) Depression (Acute) Asthma (Acute) Physical exam (Acute) Cough (Acute) Diarrhea (Acute) Dupuytren contracture (Acute) Cerumen debris on tympanic membrane (Acute) Hypertension (Acute) Past Medical History Medical History Apnea Dupuytren's contracture Asthma Depression RLS (restless legs syndrome) Anxiety Hypertension History of bone cyst Family History Family History Mother Heart attack COPD (chronic obstructive pulmonary disease) Father Heart attack High blood pressure Surgical History Surgical History H/O toe surgery History of total replacement of left ankle History of hernia surgery Social History Social History Housing: House Alcohol intake: current Alcohol intake frequency: holidays/special occasions only Patient Tobacco Use Status: Never used Tobacco Tobacco use type: Cigarette e-Cigarette/Vaping Use: Never Used Second Hand Smoke Exposure: No Use of substances other than those prescribed or required for medical reasons: No Advance Directives: No Advance Directives Information Provided: Yes service: No Current occupational status: employed Cognitive needs: No Hearing needs: No Vision needs: No Meds Allergies Allergy/AdvReac Type Severity Reaction Status Date / Time Sulfa (Sulfonamide Allergy Intermediate Rash Verified 11/27/24 08:44 Antibiotics) cephalexin [From KEFLEX] Allergy Unknown RASH Verified 11/27/24 08:44 clindamycin [CLINDAMYCIN] Allergy Unknown RASH Verified 11/27/24 08:44 levofloxacin [From LEVAQUIN] Allergy Unknown RASH Verified 11/27/24 08:44 Home Medications ?Medication ?Instructions ?Recorded ?Confirmed ?Last Taken ?Type magnesium oxide 500 mg capsule 500 mg PO DAILY 09/16/24 12/25/24 Unknown History Exam Height,Weight and Vital Signs: Height 5 ft 11 in Weight 99.79 kg Assessment and Plan Assessment Anesthesia Assessment: Chart Reviewed Documented by User: Nadya Hollis MD 12/29/24 10:26 PMFSH Active Problems Active Problems: All Active Problems Anxiety (Acute) Allergy to sulfonamides (Acute) Restless legs syndrome (Acute) Depression (Acute) Asthma (Acute) Physical exam (Acute) Cough (Acute) Diarrhea (Acute) Dupuytren contracture (Acute) Cerumen debris on tympanic membrane (Acute) Hypertension (Acute) SUSAN. Prescribed ropinirole Past Medical History Medical History Apnea Dupuytren's contracture Asthma Depression RLS (restless legs syndrome) Anxiety Hypertension History of bone cyst Family History Family History Mother Heart attack COPD (chronic obstructive pulmonary disease) Father Heart attack High blood pressure Family history of problems with anesthesia: No Surgical History Surgical History H/O toe surgery History of total replacement of left ankle History of hernia surgery History of Problems with Anesthesia: No Social History Social History Housing: House Alcohol intake: current Alcohol intake frequency: holidays/special occasions only Patient Tobacco Use Status: Never used Tobacco Tobacco use type: Cigarette e-Cigarette/Vaping Use: Never Used Second Hand Smoke Exposure: No Use of substances other than those prescribed or required for medical reasons: No Advance Directives: No Advance Directives Information Provided: Yes service: No Current occupational status: employed Cognitive needs: No Hearing needs: No Vision needs: No Meds Allergies Allergy/AdvReac Type Severity Reaction Status Date / Time Sulfa (Sulfonamide Allergy Intermediate Rash Verified 11/27/24 08:44 Antibiotics) cephalexin [From KEFLEX] Allergy Unknown RASH Verified 11/27/24 08:44 clindamycin [CLINDAMYCIN] Allergy Unknown RASH Verified 11/27/24 08:44 levofloxacin [From LEVAQUIN] Allergy Unknown RASH Verified 11/27/24 08:44 Home Medications ?Medication ?Instructions ?Recorded ?Confirmed ?Last Taken ?Type magnesium oxide 500 mg capsule 500 mg PO DAILY 09/16/24 12/25/24 Unknown History Exam Height,Weight and Vital Signs: Height 5 ft 11 in Weight 99.79 kg Vital Signs Temp Pulse Resp BP Pulse Ox O2 Del Method 12/29/24 09:08 98.2 F 76 16 118/75 98 Room Air Airway Mallampati Class: III TM Dist: >3cm Neck ROM: Full Loose/Missing/Broken Teeth: Yes (Missing tooth top Right. Denies broken or loose teeth) Heart: RRR Lungs: CTAB Assessment and Plan Assessment Anesthesia Assessment: Anesthesia Plan Discussed and Chart Reviewed Final Anesthetic Review Family History of Problems with Anesthesia: No History of Problems with Anesthesia: No NPO: Yes ASA Class: III Final Preanesthetic Review: No Changes in Pt Med Stat, Meds/Allgs Chart Reviewed, Consent Obtained/Reviewed and Anes Risks/Benef Reviewed Patient Risk: Intermediate Procedure Risk: Low Assessment/Block/Sedation in SS: Assess/Block/Sedation-SS Anesthetic Plan Anesthetic Plan: TIVA Disposition: Standard PACU
--- OUTSIDE RECORDS SUMMARY | 2024-12-29 08:07 | XMS_ITS | Data Portability ---
Author Organization [facility], [address] Address [address] [place] [address] Assessment No assessment recorded. Plan of Treatment Reminders Order Date Submit Date Provider Last Modified By Organization Details Last Modified Time Details Appointments None recorded. Lab rapid strep group A, throat 2021 [email or web address] 5 [address] [address], [address] [place], [address], 12:36:53 rapid SARS CoV 2 Ag, QL IA, respiratory specimen 2021 [email or web address] 5 [address] [address], [address] [place], [address], 12:36:54 rapid flu (A+B) 2021 [email or web address] 5 [address] [address], [address] [place], [address], 12:36:54 Referral None recorded. Procedures None recorded. Surgeries None recorded. Imaging None recorded. Medication Orders doxycycline hyclate 100 mg capsule 2021 [facility][id number], [address] [facility] [place], [address], 12:36:56 Patient TargetsNo targets recorded. Patient Instructions Encounter Date Encounter Id Patient Instructions Last Modified By Organization Details Last Modified Time 11/06/2022 [id number] viral infections : care instructions [email or web address] Not available 11/06/2022 12:36:53 diarrhea: care instructions [email or web address] Not available 11/06/2022 12:39:04 sore throat: car e instructions [email or web address] Not available 11/06/2022 12:36:53 Acute Sinusitis: Care Instructions [email or web address] Not available 11/06/2022 12:36:54 Take the antibiotic [...] primary care doctor as soon as possible. [email or web address] Not available 11/06/2022 12:39:03 Reason for Referral None Reported. Results Created Date Observation Date Name Description Value Unit Range Abnormal Flag Note LastModifiedBy Organization Detail LastModifiedTime 11/06/2011/06/2022 rapid flu (A+B) Unknown Analyte Normal = Negati ve Not Available [address] [place], [address], 11/06/2022 12:06:12 11/06/2011/06/2022 rapid flu (A+B) Unknown Analyte negati ve Not Available [address] [place], [address], 11/06/2022 12:06:12 11/06/2011/06/2022 rapid flu (A+B) Unknown Analyte Normal = Negati ve Not Available [address] [place], [address], 11/06/2022 12:06:12 11/06/2011/06/2022 rapid flu (A+B) Unknown Analyte negati ve Not Available [address] [place], [address], 11/06/2022 12:06:12 11/06/20 11/06/2022 rapid SARS CoV 2 Ag, QL IA, respi rator y speci men Unknown Analyte Normal =Negat robson Not Available [address] [place], [address], 11/06/2022 12:05:24 11/06/20 22 11/06/2022 rapid SARS CoV 2 Ag, QL IA, respi rator y speci men Unknown Analyte negati ve Not Available [address] [place], [address], 11/06/2022 12:05:24 11/06/20 22 11/06/2022 rapid strep group A, throa t Unknown Analyte Normal = Negati ve Not Available [address] [place], [address], 11/06/2022 12:00:22 11/06/20 22 11/06/2022 rapid strep group A, throa t Unknown Analyte negati ve Not Available [address] [place], [address], 11/06/2022 12:00:22 Result Notes None recorded. Problems Name Problem SNOMED Code Status Onset Date Resolution Date Notes Provider Name and Address Organization Details Recorded Time Hyperlipidemia 34985952 Active 2021 VIKI FAIRBANKS null, [place] - [facility] 2 12:03:50 Anxiety 40340520 Active 2021 VIKI FAIRBANKS null, PA - [facility] 12:03:58 Gastroesophage al reflux disease 327132043 Active 2021 VIKI FAIRBANKS null, [place] - [facility] 12:04:07 Problem Notes None recorded. Medical Equipment None Reported. Allergies Allergen ID Allergen Name Allergen Category Reaction Reaction Severity Criticality Documentation Date Start Date Code Code System Note Provider Name and Address Organization Details Recorded Time 75231 Substance with sulfonami de structure and antibacte rial mechanism of action (substanc e) medicatio n Not available Not available Not available 11/06/2022 50638 8003 SNOMED VIKI palacios [place] - [facility] 12:02:00 Medications Name Sig Start Date Stop [...] saturation in Arterial blood by Pulse oximetry Pain severity - 0-10 verbal numeric rating [Score] - Reported Heart rate Respiratory rate Body temperature Systolic blood pressure Diastolic blood pressure Provider Name and Address Organization Details Last Updated DateTime 180.34 cm 29.3 kg/m2 63457.4 g 99 % 99 % 7 89 /min 18 /min 98.4 [degF] 126 mm[Hg] 81 mm[Hg] VIKI FAIRBANKS PA - [facility] 12:01:15 Social History Question Answer Notes LastModified [...] Diagnosis/Indication Diagnosis SNOMED-CT Code Diagnosis ICD10 Code Diagnosis Note [id number] [address] [facility], [place] [address] 01/27/2020 11:28:54 01/27/2020 12:31:58 [id number] [address] [facility], [place] [address] 01/26/2020 08:02:40 01/26/2020 08:34:40 [id number] [address] [facility] ld, [place] [address] 06/22/2020 17:00:03 06/22/2020 18:08:57 [id number] [address] [facility], [place] [address] 06/24/2020 08:46:13 06/24/2020 09:53:35 [id number] [address] [facility] [address], [place] [address] 07/09/2022 11:17:23 07/09/2022 13:13:41 [id number] Eboni Yeh [place] [address] [facility] [address], [place] [address] 11/06/2022 10:20:11 11/06/2022 13:27:19 Acute sinusitis 37995959 J01.90 Viral syndrome [id number] B34.9 Health Concerns Section Related Observation LastModified by Organization Detai ls LastModified Time None Recorded Concern Status LastModified by Organization Details LastModified Time None Recorded Advance Directives Directive None Recorded Payers Encounter Date Sequence Insurance Name Policy Number Policy Son Covered Member ID Son Member ID Guarantor Name 01/27/2020 1 [facility] [employer] (POS) [id number] Tito Dafonseca [id number] Tito Dafonseca 06/22/2020 1 [facility] [employer] (POS) [id number] Tito Dafonseca [id number] Tito Dafonseca 06/24/2020 1 [facility] [employer] (POS) [id number] Tito Dafonseca [id number] Tito Dafonseca 07/09/2022 1 [facility] [employer] (POS) [id number] Tito Dafonseca [id number] Tito Dafonseca 11/06/2022 1 [facility] [employer] (POS) [id number] Tito Dafonseca [id number] Tito Dafonseca Notes Date Note Type Note [...] for covid and flu. Eboni Yeh MD [address] [place] [address] [facility] [place], [address], [place] - [facility] 11/06/2022 12:52:16
[2024-12-29 09:08] VITALS: BP 118/75; PULSE 76; RESP 16; TEMP 36.8; O2SAT 98
[2024-12-29] MEDS: Lactated Ringers 1,000 ML 100 ML IVCONT (09:16)
--- NOTE | 2024-12-29 09:27 | MHC.SHP ---
Pre-Procedural Eval Section A - 24 Hr Update-Section A only Date of Service: 12/29/24 Section B - Complete if H&P > 30 days Chief Complaint: gerd,screening,diARRHEA Relevant Family History (Specify if Yes): No Relevant Social History: None Present Medications: see Short Stay Collaborative assessment Medical History: Significant History (Hypertension History of bone cyst) History of Previous Operations: Relevant previous surgery/procedure and date(s) (History of total replacement of left ankle History of hernia surgery) Allergies: Allergies Allergy/AdvReac Type Severity Reaction Status Date / Time Sulfa (Sulfonamide Allergy Intermediate Rash Verified 11/27/24 08:44 Antibiotics) cephalexin [From KEFLEX] Allergy Unknown RASH Verified 11/27/24 08:44 clindamycin [CLINDAMYCIN] Allergy Unknown RASH Verified 11/27/24 08:44 levofloxacin [From LEVAQUIN] Allergy Unknown RASH Verified 11/27/24 08:44 Review of Systems Sugical H&P ROS: Negative: Constitution, Cardiovascular, Respiratory, Neurological, Psychiatric, Hem-Onc, Allergic/Immunologic, Gastrointestinal, Genitourinary, Musculoskeletal, Integumentary, Endocrine and Eyes/Ears/Nose/Throat Exam Surgical H&P Exam: Normal: HEENT, Normal: Heart, Normal: Lungs, Normal: Extremities, Normal: Abdomen, Normal: Skin and Normal: Neurological Plan Diagnosis/Plan: Unchanged I have reviewed the history and physical and performed a pertinent physical examination on my patient. No changes have occurred unless specified. Time Spent With Patient Time: Total time managing care of this patient today ____ minutes.
--- NOTE | 2024-12-29 10:19 | HO.OPN-COLON ---
Colonoscopy Operative Note Operative Note Date of Service: 12/29/24 Narrative: Operative Information Procedure Description: EGD, Colonoscopy Indication: GERd, diarrhea Anesthesia: MAC FLEXIBLE TRANSORAL UPPER GASTROINTESTINAL ENDOSCOPY AND COLONOSCOPY PROCEDURE NOTE UPPER ENDOSCOPY Consent: Indications for the procedure and potential complications of bleeding, perforation, reaction to medications and missed diagnosis were discussed with the patient and informed consent was obtained. Instrument: Olympus GIF H 190 J mid size upper endoscope Monitoring: Vital signs and clinical assessment, continuous EKG monitoring, Pulse oximetry, Carbon Dioxide monitoring and blood pressure monitoring were done throughout the procedure. Procedure: The patient was placed in the left lateral decubitis position and pre-procedure medications were administered and a bite block was placed. The endoscope was inserted into the mouth and advanced under direct vision to the third part of duodenum. A careful inspection was made as the upper endoscope was withdrawn including a retroflexed examination of the proximal stomach; Findings and interventions are described below. Findings: Larynx:normal Esophagus: GE junction at 43 cm, diaphragm hiatus at 43 cm, irregular z line, bx taken to r/o short segment Barretts Stomach: Mild erythema. Biopsies were obtained. Grade 2 flap valve on retroflexed examination of the cardia. Duodenum: Normal bulb and descending duodenum, bx taekn Intervention: Biopsies as noted above, COLONOSCOPY Instrument: Olympus variable stiffness pediatric scope 190L Colonoscopy Monitoring: Vital signs and clinical assessment, continuous EKG monitoring, Pulse oximetry, Carbon Dioxide monitoring and blood pressure monitoring were done throughout the procedure. Colon withdrawal time was 7 minutes. Procedure: The patient was placed in the left lateral decubitis position and pre-procedure medications were administered. After a digital rectal examination of the ano-rectum, the video colonoscope was inserted into the rectum and advanced through the colon to the cecum/TI. The colonoscope was slowly withdrawn in a retrograde panoramic fashion and the colon mucosa was carefully examined including a retroflexed view of the rectum. Findings and interventions are described below. Procedure Difficulty:moderate Findings: Terminal Ileum-not intubated due to looping Random colon bx taken Cecum:normal Ascending Colon: normal Transverse Colon -normal Descending Colon:normal Sigmoid Colon: normal Rectum: Retroflexion with small internal hemorrhoids, grade I, 10 mm sessile polyp removed with cold snare Anorectum - normal Colon preparation: [place] Bowel Preparation Scale Right colon; 2 Transverse colon: 2 Left colon; 2 (0 = Unprepared colon segment with mucosa not seen due to solid stool that cannot be cleared. 1 = Portion of mucosa of the colon segment seen, but other areas of the colon segment not well seen due to staining, residual stool and/or opaque liquid. 2 = Minor amount of residual staining, small fragments of stool and/or opaque liquid, but mucosa of colon segment seen well. 3 = Entire mucosa of colon segment seen well with no residual staining, small fragments of stool or opaque liquid) Impression and Post Procedure Diagnosis: Endoscopy Findings: mild gastritis Colonoscopy Findings: colon polyp internal hemorrhoids Plan: Await Pathology results Repeat Colonoscopy in 5-6 years due to adenomatous appearing polyp or earlier if clinically indicated High fiber diet leaflet avoid straining at stool, epsom salts and sitz bath, anusol supps or cream Above findings were reviewed with the patient and relevant handouts were provided if indicated.
[2024-12-29 10:24] VITALS: BP 114/77; PULSE 80; RESP 16; TEMP 36.4; O2SAT 97
[2024-12-29 10:39] VITALS: BP 103/68; PULSE 78; RESP 20; TEMP 36.2; O2SAT 98
== END 2024-12-29 10:58 | disposition home or self-care (01) ==
PROVIDERS: PCP Internal Medicine; Visit Provider Internal Medicine Gastroenterology
PROC: (CPT 45385; principal; 2024-12-29 10:00)
DX: Z12.11 Encounter for screening for malignant neoplasm of colon (principal); K62.1 Rectal polyp; K64.0 First degree hemorrhoids; R19.7 Diarrhea, unspecified; K21.9 Gastro-esophageal reflux disease without esophagitis; K29.50 Unspecified chronic gastritis without bleeding; K44.9 Diaphragmatic hernia without obstruction or gangrene; K22.89 Other specified disease of esophagus; I10 Essential (primary) hypertension; Z96.662 Presence of left artificial ankle joint; Z79.899 Other long term (current) drug therapy; Z88.2 Allergy status to sulfonamides; Z88.1 Allergy status to other antibiotic agents; Z98.890 Other specified postprocedural states
CPT/HCPCS: 45385; 45380; 43239; 36415; 82657; 88305; J2003; J2704

== ENCOUNTER → 2024-12-29 08:03 | Outpatient (BNV) | payer OTHER, SELFPAY | PROVIDERS: PCP Internal Medicine; Visit Provider Internal Medicine Gastroenterology | DX: K21.9 Gastro-esophageal reflux disease without esophagitis (principal); K29.70 Gastritis, unspecified, without bleeding; R19.7 Diarrhea, unspecified; K63.5 Polyp of colon; K64.0 First degree hemorrhoids | CPT/HCPCS: 43239; 45380; 45385 ==

== ENCOUNTER 2025-07-21 09:57 | Outpatient (AMB) | payer OTHER, SELFPAY ==
[2025-07-21 10:11] VITALS: BP 140/86; PULSE 77; RESP 18; TEMP 36.2; O2SAT 96; BMI 31.1
--- NOTE | 2025-07-21 10:11 | MHC.PC.OV ---
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 Accompanied by: Self / Same As Patient Allergies Sulfa (Sulfonamide Antibiotics) Allergy (Intermediate, Verified 07/21/25 10:24) Rash cephalexin (From KEFLEX) Allergy (Unknown, Verified 07/21/25 10:24) RASH clindamycin (CLINDAMYCIN) Allergy (Unknown, Verified 07/21/25 10:24) RASH levofloxacin (From LEVAQUIN) Allergy (Unknown, Verified 07/21/25 10:24) RASH Medication List - Last Reconciled 07/21/25 by TAWANA Chaudhari albuterol sulfate 90 mcg/actuation (ProAir HFA) 1 puff inhalation QID PRN bupropion HCl SR 150 mg PO BID clonazepam 1 mg PO BID lisinopril 10 mg PO DAILY magnesium oxide 500 mg PO DAILY omeprazole 40 mg PO DAILY ropinirole 1 mg PO BEDTIME Tobacco use date assessed: 07/21/25 Dental Screening Dental Screen Date: 07/21/25 Did you have a dental visit in the last 12 months?: Yes Did you have a dental problem in the last 6 months where you did not have access to dental care?: No Was dental information given to patient?: Patient has dentist HPI MARYCARMEN DR Rodriguez HPI Details The patient is a 55-year-old male presenting to transition care from Dr. Rodriguez, who retired 5 months ago. He reports previous nausea and diarrhea. The symptoms began approximately two weeks ago, with the patient experiencing vomiting and diarrhea, which led him to seek care at an urgent care facility. Initial blood tests were negative, and the patient was advised to wait for further results. The patient has a history of restless legs syndrome, for which he has been prescribed ropinirole. He expressed concerns about the addictive nature of the medication and is interested in exploring alternative treatments such as gabapentin. The patient reports elevated cholesterol levels and has been advised to make dietary changes to manage this condition. He also has a history of hypertension, managed with lisinopril. The patient has been experiencing gastroesophageal reflux disease since the late , managed with omeprazole, which he finds effective. He reports that without the medication, even small amounts of food can cause significant discomfort. The patient also reports shortness of breath on exertion, particularly when climbing stairs, and dizziness upon standing quickly, which he attributes to dehydration and excessive coffee consumption. He acknowledges the need to increase water intake to mitigate these symptoms. The patient underwent a colonoscopy where polyps were removed, and he was informed that a follow-up for results, although it has not yet occurred. Per chart review, the patient is to repeat colonoscopy in 5-6 years due to adenomatous appearing polyps. [facility] Medical History Apnea Dupuytren's contracture Asthma Depression RLS (restless legs syndrome) Anxiety Hypertension History of bone cyst Surgical History H/O toe surgery History of total replacement of left ankle History of hernia surgery Family History Mother Heart attack COPD (chronic obstructive pulmonary disease) Father Heart attack High blood pressure Social History Housing: House Alcohol intake: current Alcohol intake frequency: holidays/special occasions only Patient Tobacco Use Status: Never used Tobacco Tobacco use type: Cigarette e-Cigarette/Vaping Use: Never Used Second Hand Smoke Exposure: No service: No Current occupational status: employed Cognitive needs: No Hearing needs: No Vision needs: No Questionnaire PHQ-9 Over the last 2 weeks, how often have you been bothered by any of the following problems? 1. Little interest or pleasure in doing things: nearly every day 2. Feeling down, depressed, or hopeless: several days 3. Trouble falling or staying asleep, or sleeping too much: nearly every day 4. Feeling tired or having little energy: nearly every day 5. Poor appetite or overeating: several days 6. Feeling bad about yourself - or that you are a failure or have let yourself or your family down: not at all 7. Trouble concentrating on things, such as reading the newspaper or watching television: several days 8. Moving or speaking so slowly that other people could have noticed. Or the opposite - being so fidgety or restless that you have been moving around a lot more than usual: several days 9. Thoughts that you would be better off or of hurting yourself in some way: not at all Total score: 13 Depression Screening Interpretation: Positive Depression Screening Done: Yes Source: Developed by Drs. Loyd Harper, Janice Lomeli, Twin Feldman and colleagues, with an educational jessica from [employer]. Thrive Questionnaire Date Thrive assessed: 07/21/25 I am a: Patient What is your living situation today?: I have a steady place to live Within the past 12 months, did the food you bought not last and you didn't have the money to get more?: Never true Within the past 12 months, did you worry whether your food would run out before you got money to buy more?: Never true Do you have trouble paying for medicines?: No Do you have trouble getting transportation to medical appointments?: No Do you have trouble paying your heating and electricity bill?: No Do you have trouble taking care of your child, family member or friend?: No Do you have trouble with day-to-day activities such as bathing, preparing meals, shopping, managing finances, etc.?: No Are you currently unemployed and looking for a job?: No Are you interested in more education?: No Please select the resources that you would like help with: None Currently or been in a relationship where the following occur: No concerns reported THRIVE Score: 0 AUDIT C Alcohol Use Questionnaire (AUDIT-C) 1. How often do you have a drink containing alcohol?: Monthly or less Total Score: 1 RALPH-7 AMB Questionnaire RALPH-7 Date RALPH - 7 assessed: 07/21/25 Feeling nervous, anxious, or on edge: 1 = Several days Not being able to stop or control worryin = Several days Worrying too much about different things: 1 = Several days Trouble relaxin = Several days Being so restless that it is hard to sit still: 1 = Several days Becoming easily annoyed or irritable: 0 = Not at all Feeling afraid as if something awful might happen: 0 = Not at all Total RALPH-7 score (0-4 normal; 5-9 mild; 10-14 moderate; 15-21 severe): 5 Source: Developed by Drs. Loyd Harper, Janice Lomeli, Twin Feldman and colleagues, with an educational jessica from [employer]. Review of Systems Const Denies headache(s) Eyes Denies loss of vision ENT Denies vertigo, Denies dizziness, Denies headache(s) and Denies sore throat Card Denies chest pain, Denies leg edema and Denies lightheadedness Resp Denies cough, Denies hemoptysis and Denies wheezing GI Denies abdominal pain, Denies melena, Denies constipation, Reports heartburn (If skips treatments), Denies diarrhea and Denies vomiting Denies dysuria, Denies urinary frequency and Denies urinary urgency Musc Denies arthralgias, Denies joint swelling, Denies numbness, Denies tingling and Reports other (Restless legs) Neuro Denies Abnormal speech present, Denies behavioral changes, Denies vertigo, Denies dizziness, Denies headache(s), Denies loss of vision, Denies memory loss, Denies numbness and Denies tingling Psych Reports anxiety, Denies behavioral changes, Reports depression, Denies memory loss and Denies panic attacks Lito/Lymph Denies easy bleeding and Denies easy bruising Aller/Immun Denies wheezing Physical exam (Primary Care) Vital Signs: Last Vital Signs Temp 97.1 F 07/21/25 10:11 Pulse 77 07/21/25 10:11 Resp 18 07/21/25 10:11 BP 132/86 07/21/25 10:39 Pulse Ox 96 07/21/25 10:11 Oxygen Delivery Method Room Air 07/21/25 10:11 BMI result Body Mass Index 31.1 Tobacco/Smoking Status: Tobacco use Status Tobacco use date assessed 07/21/25 07/21/25 10:20 Patient Tobacco Use Status Never used Tobacco 07/21/25 10:20 Tobacco use type Cigarette 07/21/25 10:20 e-Cigarette/Vaping Use Never Used 07/21/25 10:20 PHQ-9: PHQ-9 Score PHQ-9: Total score 13 07/21/25 10:40 Depression Screening Interpretation: Positive Thrive Assessment: Date of Thrive Assessment Date Thrive assessed 07/21/25 07/21/25 10:20 Currently or been in a relationship where the following occur: No concerns reported Const General: healthy appearing, no acute distress, alert and awake Nutritional Appearance: well nourished Orientation/consciousness: oriented to person, oriented to place and oriented to time HENMT Ears: TM's normal bilaterally General nose exam: Normal nasal mucous membranes and turbinates present Eyes Conjunctivae: conjunctivae normal Sclerae: sclerae normal Pupils: Equal, round and reactive pupils present Neck Neck: Yes no lymphadenopathy and Yes no JVD Thyroid: Thyroid normal Carotids: no bruits Resp Effort & Inspection: normal respiratory effort and not tachypneic Auscultation: no crackles, no rales, no rhonchi and no wheezes Cardio Rate: regular rate Rhythm: regular rhythm Heart sounds: no murmurs and normal S1 and S2 GI Palpation (GI): Soft to palpation, nontender, no hepatomegaly and no splenomegaly Auscultation: normal bowel sounds Skin General skin exam: no rashes or lesions noted and dry skin Neuro General: oriented to person, oriented to place and oriented to time Cranial nerves: Yes Equal, round and reactive pupils present Speech: No Abnormal speech present Gait exam (Neuro): Normal gait present Motor exam (neuro): no tremor noted Extrem Right upper extremity: full ROM Left upper extremity: full ROM Right lower extremity: full ROM; no edema Left lower extremity: full ROM; no edema Psych Mental Status: mental status grossly normal Speech and movement: Normal speech and movement present Affect: normal affect Attitude: cooperative Thought process: Normal thought process present Coding Level of Care Code Est Pt Level 4 (37698) Diagnoses Depression, unspecified depression type F32.A Depression Type: unspecified Anxiety F41.9 Hypertension, unspecified type I10 Hypertension type: unspecified Restless legs syndrome G25.81 Mild intermittent asthma with acute exacerbation J45.21 Asthma severity: mild Asthma persistence: intermittent Asthma complication type: with acute exacerbation Diarrhea, unspecified type R19.7 Diarrhea type: unspecified type Nausea R11.0 Gastroesophageal reflux disease, unspecified whether esophagitis present K21.9 Esophagitis presence: esophagitis presence not specified Time Spent (min) 41 Assessment & Plan Assessment & Plan (1) Depression: Code(s): F32.A - Depression, unspecified Category: Medical Qualifiers: Depression Type: unspecified Qualified Code(s): F32.A - Depression, unspecified Plan: Encouraged CBT Continue bupropion HCl SR 150 mg b.i.d. Denies SI/HI (2) Anxiety: Code(s): F41.9 - Anxiety disorder, unspecified Category: Medical Plan: Encouraged CBT Continue clonazepam 1 mg b.i.d. Denies SI/HI (3) Hypertension: Code(s): I10 - Essential (primary) hypertension Category: Medical Qualifiers: Hypertension type: unspecified Qualified Code(s): I10 - Essential (primary) hypertension Plan: Initial blood pressure was 180/86. Rechecked few minutes was 132/86 Reinforced low-sodium diet Continue lisinopril 10 mg daily (4) Restless legs syndrome: Code(s): G25.81 - Restless legs syndrome Category: Medical (5) Asthma: Code(s): J45.909 - Unspecified asthma, uncomplicated Category: Medical Qualifiers: Asthma severity: mild Asthma persistence: intermittent Asthma complication type: with acute exacerbation Qualified Code(s): J45.21 - Mild intermittent asthma with (acute) exacerbation Plan: Stable Continue albuterol sulfate 90 mcg/actuation 1 puff inhalation q.i.d. p.r.n. (6) Diarrhea: Code(s): R19.7 - Diarrhea, unspecified Category: Medical Qualifiers: Diarrhea type: unspecified type Qualified Code(s): R19.7 - Diarrhea, unspecified Plan: This started after returning from [facility]. Lasted for more than a week. Went to urgent care, labs completed with negative results. The patient was started on Imodium with positive effects. Patient was also started on Zofran p.r.n. with positive effects (7) Nausea: Code(s): R11.0 - Nausea Category: Medical Plan: This started after returning from [facility]. Lasted for more than a week. Went to urgent care, labs completed with negative results. Patient was also started on Zofran p.r.n. with positive effects (8) GERD (gastroesophageal reflux disease): Code(s): K21.9 - Gastro-esophageal reflux disease without esophagitis Category: Medical Qualifiers: Esophagitis presence: esophagitis presence not specified Qualified Code(s): K21.9 - Gastro-esophageal reflux disease without esophagitis Plan: Do not eat meals or drink carbonated beverages within 3 hr of bedtime Decrease the amount of fried, fatty, and spicy foods to decrease gastric acid production Raise the head of the bed using 4 to 6-inch blocks, especially if nocturnal symptoms are present Lose weight if indicated; avoid tight-fitting clothing, especially around the waist Avoid foods that relax the Lower esophageal sphincter (chocolate, peppermint, high-fat foods etc.,) Continue omeprazole 40 mg daily Plan Return in 1 year for annual physical Orders: Orders Complete Blood Count Auto Diff Today F32.A - Depression, unspecified, F41.9 - Anxiety disorder, unspecified, G25.81 - Restless legs syndrome, I10 - Essential (primary) hypertension, J45.909 - Unspecified asthma, uncomplicated, R19.7 - Diarrhea, unspecified, Z00.00 - Encounter for general adult medical examination without abnormal findings, Z88.2 - Allergy status to sulfonamides Comprehensive Telephone. Panel Fast Today F32.A - Depression, unspecified, F41.9 - Anxiety disorder, unspecified, G25.81 - Restless legs syndrome, I10 - Essential (primary) hypertension, J45.909 - Unspecified asthma, uncomplicated, R19.7 - Diarrhea, unspecified, Z00.00 - Encounter for general adult medical examination without abnormal findings, Z88.2 - Allergy status to sulfonamides Lipid Panel Today F32.A - Depression, unspecified, F41.9 - Anxiety disorder, unspecified, G25.81 - Restless legs syndrome, I10 - Essential (primary) hypertension, J45.909 - Unspecified asthma, uncomplicated, R19.7 - Diarrhea, unspecified, Z00.00 - Encounter for general adult medical examination without abnormal findings, Z88.2 - Allergy status to sulfonamides Vitamin D 25-OH Total Today F32.A - Depression, unspecified, F41.9 - Anxiety disorder, unspecified, G25.81 - Restless legs syndrome, I10 - Essential (primary) hypertension, J45.909 - Unspecified asthma, uncomplicated, R19.7 - Diarrhea, unspecified, Z00.00 - Encounter for general adult medical examination without abnormal findings, Z88.2 - Allergy status to sulfonamides PSA,Total (Free>4and<10) Today F32.A - Depression, unspecified, F41.9 - Anxiety disorder, unspecified, G25.81 - Restless legs syndrome, I10 - Essential (primary) hypertension, J45.909 - Unspecified asthma, uncomplicated, R19.7 - Diarrhea, unspecified, Z00.00 - Encounter for general adult medical examination without abnormal findings, Z88.2 - Allergy status to sulfonamides UA CC w/rflx Micro + Cult Today F32.A - Depression, unspecified, F41.9 - Anxiety disorder, unspecified, G25.81 - Restless legs syndrome, I10 - Essential (primary) hypertension, J45.909 - Unspecified asthma, uncomplicated, R19.7 - Diarrhea, unspecified, Z00.00 - Encounter for general adult medical examination without abnormal findings, Z88.2 - Allergy status to sulfonamides TSH reflex Free T4 Today F32.A - Depression, unspecified, F41.9 - Anxiety disorder, unspecified, G25.81 - Restless legs syndrome, I10 - Essential (primary) hypertension, J45.909 - Unspecified asthma, uncomplicated, R19.7 - Diarrhea, unspecified, Z00.00 - Encounter for general adult medical examination without abnormal findings, Z88.2 - Allergy status to sulfonamides Medications: Refilled albuterol sulfate 90 mcg/actuation (ProAir HFA) 1 puff inhalation QID PRN 8.5 grams 3RF shortness of breath or wheezing
[2025-07-21 10:39] VITALS: BP 132/86
--- OUTSIDE RECORDS SUMMARY | 2025-07-21 10:43 | XMS_ITS ---
Author Name [facility] Organization Unknown Encounters Encounter Type Encounter Reason Primary Diagnosis Location Date Ambulatory [facility]. ([facility]) 11/06/2022
== END 2025-07-21 10:57 | disposition home or self-care (01) ==
LOC: HO.HMCH 09:58
DX: F32.A Depression, unspecified (principal); F41.9 Anxiety disorder, unspecified; I10 Essential (primary) hypertension; G25.81 Restless legs syndrome; J45.21 Mild intermittent asthma with (acute) exacerbation; R19.7 Diarrhea, unspecified; R11.0 Nausea; K21.9 Gastro-esophageal reflux disease without esophagitis

== ENCOUNTER 2025-08-03 10:13 | Outpatient (REF) | payer OTHER, SELFPAY ==
[2025-08-03 10:26] LABS: MANUAL DIFF FLAG NO
[2025-08-03 10:55] LABS: Hematocrit 45.3 % (42.0-52.0); Hemoglobin 16.0 g/dl (14.0-18.0); Imm Gran Abs Auto 0.02 X10*3/uL (0.00-0.03); Imm Gran Pct Auto 0.3 % (0.0-0.4); Lymphocytes Absolute Auto 2.1 X10*3/uL (1.2-4.9); Mean Corpuscular HGB Conc 35.3 g/dl (31.0-36.0); Mean Corpuscular Hemoglobin 29.5 pg (27.0-33.0); Mean Corpuscular Volume 83.4 fL (80.0-98.0); NRBC Abs Auto 0.000 X10*3/uL (0.0-0.012); NRBC Pct Auto 0.0 /100WBC (0.0-0.2); Platelet Count 253 X10*3/uL (160-400); Red Blood Count 5.43 X10*6/uL (4.60-5.80); White Blood Count 7.5 X10*3/uL (4.8-10.8)
[2025-08-03 11:35] LABS: Alanine Aminotransferase 39 U/L (0-40); Albumin Level 4.4 g/dL (3.5-5.0); Alkaline Phosphatase 82 U/L (39-117); Anion Gap 12 (12-20); Aspartate Amino Transferase 29 U/L (5-37); Blood Urea Nitrogen 10 mg/dL (9-16); Calcium 8.8 mg/dL (8.4-10.2); Carbon Dioxide 29 mmol/L (22-29); Chloride 106 mmol/L (96-108); Cholesterol 180 mg/dL (<200); Estimated Glomerular Filt Rate > 60; HDL Cholesterol 33 mg/dL (>40); Potassium 4.3 mmol/L (3.3-5.1); Sodium 143 mmol/L (135-145); Total Protein 7.0 g/dL (6.5-8.0); Triglycerides 166 mg/dL (<150)
[2025-08-03 11:42] LABS: PSA,Total (Free>4and<10) 2.22 ng/mL (0.00-4.00)
== END 2025-08-03 10:14 | disposition home or self-care (01) ==
LOC: HO.LAB 10:13
DX: Z00.00 Encounter for general adult medical examination without abnormal findings (principal); Z12.5 Encounter for screening for malignant neoplasm of prostate; I10 Essential (primary) hypertension; J45.909 Unspecified asthma, uncomplicated; G25.81 Restless legs syndrome; F41.8 Other specified anxiety disorders; R19.7 Diarrhea, unspecified; Z88.2 Allergy status to sulfonamides
CPT/HCPCS: 36415; 80053; 80061; 82306; 84153; 84443; 85025